=== PATIENT | female | born 1935 | race African-American/Black ===

== ENCOUNTER 2018-09-13 14:00 | Emergency (ER) | payer MEDICARE ==
[~2018-09-13] VITALS: Ht 162.6 cm; Wt 55.8 kg
[~2018-09-13 14:00] MED LIST: AMLO5TAB7 PO; ASPI-630 PO; CITA10TA4 PO; ERGO500027 PO; HYDR-2145 PO; LISI-130 PO; SIMV20TA3 PO
[2018-09-13 14:32] LABS: BASO # 0.1 x10^3/uL (0.0-0.2); BASO % 1 % (0-3); EOS # 0.2 x10^3/uL (0.0-0.7); EOS % 3 % (0-3); HEMATOCRIT 32.3 % (36.0-47.0); HEMOGLOBIN 10.9 g/dL (12.0-15.5); LYMPH # 1.6 x10^3/uL (1.0-4.8); LYMPH % 28 % (24-48); MEAN CORPUSCULAR HEMOGLOBIN 32 pg (25-35); MEAN CORPUSCULAR HGB CONC 34 g/dL (31-37); MEAN CORPUSCULAR VOLUME 94 fL (79-100); MONO # 0.4 x10^3/uL (0.0-1.1); MONO % 7 % (0-9); NEUT # 3.4 x10^3uL (1.8-7.7); NEUT % 61 % (31-73); PLATELET COUNT 220 x10^3/uL (140-400); RED BLOOD COUNT 3.44 x10^6/uL (3.50-5.40); WHITE BLOOD COUNT 5.6 x10^3/uL (4.0-11.0)
[2018-09-13 14:53] LABS: CALCIUM 9.4 mg/dL (8.5-10.1); CREATININE 1.2 mg/dL (0.6-1.0); GFR 51.9; POTASSIUM 4.4 mmol/L (3.5-5.1)
--- NOTE | 2018-09-13 14:57 | EKG ---
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
[2018-09-13 14:58] LABS: ALBUMIN 3.7 g/dL (3.4-5.0); ALBUMIN/GLOBULIN RATIO 0.9 (1.0-1.7); TOTAL BILIRUBIN 0.2 mg/dL (0.2-1.0); TOTAL PROTEIN 7.8 g/dL (6.4-8.2)
[2018-09-13 15:11] LABS: BILIRUBIN,URINE NEGATIVE (NEG); COLOR,URINE YELLOW; NITRITE,URINE NEGATIVE (NEG); PROTEIN,URINE NEGATIVE (NEG-TRACE)
[2018-09-13 15:18] LABS: BARBITURATES NEG (NEG); BENZODIAZEPINES NEG (NEG); CANNABINOIDS NEG (NEG); COCAINE NEG (NEG); METHADONE NEG (NEG); OPIATES NEG (NEG); PHENCYCLIDINE NEG (NEG)
[2018-09-13 15:21] LABS: CLARITY,URINE HAZY
[2018-09-13 15:26] LABS: AMPHETAMINE/METHAMPHETAMINE NEG (NEG)
[2018-09-13 15:34] LABS: BACTERIA,URINE MANY /HPF (0-FEW); RBC,URINE RARE /HPF (0-2); SQUAMOUS EPITHELIAL CELL,UR MANY /LPF
--- NOTE | 2018-09-13 16:24 | PHYS DOC ---
Past Medical History Past Medical History: Cancer, Hypertension, Other Additional Past Medical Histor: COLON CANCER Past Surgical History: Other Additional Past Surgical Histo: UNKNOWN, NOT A GOOD HISTORIAN Alcohol Use: None Drug Use: None Adult General Chief Complaint Chief Complaint: ALTERED MENTAL STATUS HPI HPI Patient is a 83 year old male patient resident of assisted who brought in by EMS because of confusion and history of recent UTI. Patient is oriented 1 and talking about some prothesis device in her vagina that was placed by EMT staff. Patient is not able to give history. Review of Systems Review of Systems Able to obtain because of medical condition Current Medications Current Medications Current Medications Medications (Trade) Dose Ordered Sig/Leonila Start Time Stop Time Status Last Admin Dose Admin Ciprofloxacin (Cipro) 250 mg 1X ONCE 09/13/18 16:30 09/13/18 16:31 DC 09/13/18 17:03 250 MG Allergies Allergies Allergies Coded Allergies Type Severity Reaction Last Updated Verified No Known Drug Allergies 09/26/17 No Physical Exam Physical Exam Constitutional: Well nourished, no acute distress, non-toxic appearance. [] HENT: Normocephalic, atraumatic Eyes: PERRLA, EOMI, conjunctiva normal, no discharge. [] Neck: Normal range of motion, no tenderness, supple, no stridor. [] Cardiovascular:Heart rate regular rhythm, no murmur [] Lungs & Thorax: Bilateral breath sounds clear to auscultation [] Abdomen: Bowel sounds normal, soft, no tenderness, no masses, no pulsatile masses. [] Skin: Warm, dry, no erythema, no rash. [] Back: No tenderness, no CVA tenderness. [] Extremities: No tenderness, no cyanosis, no clubbing, ROM intact, no edema. [] Neurologic: Alert and oriented X 1, normal motor function, normal sensory function, no focal deficits noted. [] Psychologic: Affect anxious, judgement abnormal hallucinating Current Patient Data Vital Signs Vital Signs Date Time Temp Pulse Resp B/P (MAP) Pulse Ox O2 Delivery O2 Flow Rate FiO2 09/13/18 20:59 58 20 100 09/13/18 14:00 98.3 146/70 (95) Room Air 98.3 Lab Values Laboratory Tests Test 09/13/18 14:15 09/13/18 14:55 White Blood Count 5.6 x10^3/uL (4.0-11.0) Red Blood Count 3.44 x10^6/uL (3.50-5.40) L Hemoglobin 10.9 g/dL (12.0-15.5) L Hematocrit 32.3 % (36.0-47.0) L Mean Corpuscular Volume 94 fL (79-100) Mean Corpuscular Hemoglobin 32 pg (25-35) Mean Corpuscular Hemoglobin Concent 34 g/dL (31-37) Red Cell Distribution Width 15.0 % (11.5-14.5) H Platelet Count 220 x10^3/uL (140-400) Neutrophils (%) (Auto) 61 % (31-73) Lymphocytes (%) (Auto) 28 % (24-48) Monocytes (%) (Auto) 7 % (0-9) Eosinophils (%) (Auto) 3 % (0-3) Basophils (%) (Auto) 1 % (0-3) Neutrophils # (Auto) 3.4 x10^3uL (1.8-7.7) Lymphocytes # (Auto) 1.6 x10^3/uL (1.0-4.8) Monocytes # (Auto) 0.4 x10^3/uL (0.0-1.1) Eosinophils # (Auto) 0.2 x10^3/uL (0.0-0.7) Basophils # (Auto) 0.1 x10^3/uL (0.0-0.2) Sodium Level 143 mmol/L (136-145) Potassium Level 4.4 mmol/L (3.5-5.1) Chloride Level 107 mmol/L (98-107) Carbon Dioxide Level 28 mmol/L (21-32) Anion Gap 8 (6-14) Blood Urea Nitrogen 28 mg/dL (7-20) H Creatinine 1.2 mg/dL (0.6-1.0) H Estimated GFR (Cockcroft-Gault) 51.9 BUN/Creatinine Ratio 23 (6-20) H Glucose Level 93 mg/dL (70-99) Lactic Acid Level 1.0 mmol/L (0.4-2.0) Calcium Level 9.4 mg/dL (8.5-10.1) Magnesium Level 2.0 mg/dL (1.8-2.4) Total Bilirubin 0.2 mg/dL (0.2-1.0) Aspartate Amino Transferase (AST) 15 U/L (15-37) Alanine Aminotransferase (ALT) 17 U/L (14-59) Alkaline Phosphatase 55 U/L (46-116) Creatine Kinase 110 U/L (26-192) Troponin I Quantitative < 0.017 ng/mL (0.000-0.055) RZ-Ldi-X-Type Natriuretic Peptide 466 pg/mL (0-449) H Total Protein 7.8 g/dL (6.4-8.2) Albumin 3.7 g/dL (3.4-5.0) Albumin/Globulin Ratio 0.9 (1.0-1.7) L Urine Collection Type Void Urine Color Yellow Urine Clarity Hazy Urine pH 7.0 Urine Specific [place] 1.025 Urine Protein Negative mg/dL (NEG-TRACE) Urine Glucose (UA) Negative mg/dL (NEG) Urine Ketones (Stick) Negative mg/dL (NEG) Urine Blood Negative (NEG) Urine Nitrite Negative (NEG) Urine Bilirubin Negative (NEG) Urine Urobilinogen Dipstick 1.0 mg/dL (0.2 mg/dL) Urine Leukocyte Esterase Moderate (NEG) Urine RBC Rare /HPF (0-2) Urine WBC 5-10 /HPF (0-4) Urine Squamous Epithelial Cells Many /LPF Urine Bacteria Many /HPF (0-FEW) Urine Mucus Marked /LPF Urine Opiates Screen Neg (NEG) Urine Methadone Screen Neg (NEG) Urine Barbiturates Neg (NEG) Urine Phencyclidine Screen Neg (NEG) Urine Amphetamine/Methamphetamine Neg (NEG) Urine Benzodiazepines Screen Neg (NEG) Urine Cocaine Screen Neg (NEG) Urine Cannabinoids Screen Neg (NEG) Urine Ethyl Alcohol Neg (NEG) Laboratory Tests 09/13/18 14:15 Laboratory Tests 09/13/18 14:15 EKG EKG EKG interpreted by me. EKG at 1443 showed sinus bradycardia at rate of 55, abnormal left axis deviation, incomplete left bundle branch block, T-wave abnormality in the high lateral leads, no acute ST and T-wave abnormalities. Radiology/Procedures Radiology/Procedures [] Course & Med Decision Making Course & Med Decision Making Pertinent Labs reviewed. (See chart for details) Evaluation of patient in ER showed 82-year-old female patient with active hallucination brought in for medical evaluation for possible UTI to cause her problem. Patient not have hypotension, tachycardia, fever, toxic symptom. UA showed mild infection. Labs was unremarkable. 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 Dragon Disclaimer Dragon Disclaimer This electronic medical record was generated, in whole or in part, using a voice recognition dictation system. Departure Departure Impression: Primary Impression: Agitation Additional Impressions: Hallucination Behavior concern Medical clearance for psychiatric admission UTI (urinary tract infection) Disposition: 65 XFER TO PSYCH HOSP/UNIT ([facility], Dr. Sandoval accepted admission at 2039) Condition: IMPROVED Referrals: NICOLE JAIMES MD (PCP) Problem Qualifiers MARVIN HAIRSTON MD Sep 13, 2018 16:24
[2018-09-13] MEDS ORDERED: CIPROFLOXACIN HCL 250 MG TABLET. PO ONE (16:30)
[2018-09-13 20:59] VITALS: BP 126/64
== END 2018-09-13 21:35 ==
LOC: ER 14:00
DX: R45.1 Restlessness and agitation (principal); R44.3 Hallucinations, unspecified; F91.8 Other conduct disorders; Z01.818 Encounter for other preprocedural examination; N39.0 Urinary tract infection, site not specified; F41.9 Anxiety disorder, unspecified; I10 Essential (primary) hypertension; Z85.038 Personal history of other malignant neoplasm of large intestine
CPT/HCPCS: 36415; 80053; 80307; 81001; 82550; 83605; 83735; 83880; 84484; 85025; 87040; 87086; 93005; 99285-25

== ENCOUNTER 2020-10-03 12:27 | Inpatient (IN) | payer MEDICARE, OTHER ==
[~2020-10-03] VITALS: Ht 162.6 cm; Wt 53.0 kg
[~2020-10-03 12:27] MED LIST changes: +AMLO-186 PO; -AMLO5TAB7 PO; +SIMV20TA18 PO; -SIMV20TA3 PO
[2020-10-03] MEDS ORDERED: IV NORMAL SALINE 1000ML BAG 1,000 ML IV ONE (12:45)
--- NOTE | 2020-10-03 12:51 | PHYS DOC ---
Past Medical History Past Medical History: Cancer, Hypertension, Other Additional Past Medical Histor: COLON CANCER (MAXIMO MONDRAGON APRN) Past Surgical History: Other Additional Past Surgical Histo: UNKNOWN, NOT A GOOD HISTORIAN (MAXIMO MONDRAGON APRN) Smoking Status: Never Smoker Alcohol Use: None Drug Use: None (MAXIMO MONDRAGON APRN) General Adult EDM: Chief Complaint: ALTERED MENTAL STATUS HPI: HPI: Patient is a 85 year old female with a history of hypertension who presents to the ED today from a [facility] to be evaluated for altered mental status. Patient is not able to give much history. She is alert and oriented x1-2. It is unknown how long she has been altered. (MAXIMO MONDRAGON APRN) Review of Systems: Review of Systems: Constitutional: Denies fever or chills. [] Eyes: Denies change in visual acuity. [] HENT: Denies nasal congestion or sore throat. [] Respiratory: Denies cough or shortness of breath. [] Cardiovascular: Denies chest pain or edema. [] GI: Denies abdominal pain, nausea, vomiting, bloody stools or diarrhea. [] : Denies dysuria. [] Musculoskeletal: Denies back pain or joint pain. [] Integument: Denies rash. [] Neurologic: skilled nursing reports altered mental status. Denies headache, focal weakness or sensory changes. [] Psychiatric: Denies depression or anxiety. [] (MAXIMO MONDRAGON APRN) Heart Score: Risk Factors: Risk Factors: DM, Current or recent (<one month) smoker, HTN, HLP, family h istory of CAD, obesity. Risk Scores: Score 0 - 3: 2.5% MACE over next 6 weeks - Discharge Home Score 4 - 6: 20.3% MACE over next 6 weeks - Admit for Clinical Observation Score 7 - 10: 72.7% MACE over next 6 weeks - Early Invasive Strategies (MAXIMO MONDRAGON APRN) Allergies: Allergies: Allergies Coded Allergies Type Severity Reaction Last Updated Verified No Known Drug Allergies 09/26/17 No (MAXIMO MONDRAGON APRN) Physical Exam: PE: Constitutional: Well developed, well nourished, no acute distress, non-toxic appearance. [] HENT: Normocephalic, atraumatic, bilateral external ears normal, oropharynx moist, no oral exudates, nose normal. [] Eyes: PERRLA, EOMI, conjunctiva normal, no discharge. [] Neck: Normal range of motion, no tenderness, supple, no stridor. [] Cardiovascular:Heart rate regular rhythm, no murmur [] Lungs & Thorax: Bilateral breath sounds clear to auscultation [] Abdomen: Bowel sounds normal, soft, no tenderness, no masses, no pulsatile masses. [] Skin: Warm, dry, no erythema, no rash. [] Back: No tenderness, no CVA tenderness. [] Extremities: No tenderness, no cyanosis, no clubbing, ROM intact, no edema. [] Neurologic: Alert and oriented X 1-2, normal motor function, normal sensory function, no focal deficits noted. Cranial nerves II through XII Psychologic: Affect normal, judgement normal, mood normal. [] (MAXIMO MONDRAGON APRN) EKG: EK interpreted by Dr. Burrows sinus rhythm HR 59 LBB no STEMI (MAXIMO MONDRAGON APRN) Radiology/Procedures: Radiology/Procedures: PATIENT: MICHAEL ACEVEDO ACCOUNT: [id number] : 1935 LOCATION: ER AGE: 85 SEX: F EXAM STATUS: REG ER ORD. PHYSICIAN: MAXIMO MONDRAGON APRN REASON: AMS PROCEDURE: CT HEAD WO CONTRAST CT brain without contrast. HISTORY: Altered mental status CT scan of the brain was done without contrast. Sinuses are clear. A skull fracture is not identified. There is no intracranial hemorrhage or subdural hematoma. There is atrophy. There is decreased density in the periventricular white matter from chronic microvascular changes. There is no mass or shift of the midline. Ventricles are normal in size. An acute CVA is not identified. Pattern is similar to the prior study from September 2017. IMPRESSION: 1. Atrophy and chronic white matter changes. 2. No intracranial hemorrhage or acute CVA noted. PQRS Compliance Statement: One or more of the following individualized dose reduction techniques were utilized for this examination: 1. Automated exposure control 2. Adjustment of the mA and/or kV according to patient size 3. Use of iterative reconstruction technique Electronically signed by: Gama Harvey MD (10/03/2020 1:48 PM) [facility] DICTATED and SIGNED BY: GAMA HARVEY MD DATE: 10/03/20 [id number] []PATIENT: BARBY ACEVEDOCOUNT: [id number]#: [id number] : 1935 LOCATION: ER AGE: 85 SEX: F EXAM STATUS: PRE ER ORD. PHYSICIAN: MAXIMO MONDRAGON APRN REASON: AMS PROCEDURE: PORTABLE CHEST 1V AP chest. HISTORY: Altered mental status AP view was taken of the chest. Lungs are clear. There is thoracolumbar scoliosis. Heart is normal in size. There is no effusion. IMPRESSION: 1. No acute infiltrates. Electronically signed by: Gama Harvey MD (10/03/2020 12:59 PM) [facility] DI[facility] and SIGNED BY: GAMA HARVEY MD DATE: 10/03/20 [id number] (MAXIMO MONDRAGON APRN) Course & Med Decision Making: Course & Med Decision Making Pertinent Labs and Imaging studies reviewed. (See chart for details) This is a 85-year-old female patient presented to the ED today from a [facility] to be evaluated for altered mental status change. It is unknown how long she has been altered. Patient is alert and oriented x2. CT of the head as well as chest x-rays are negative for any acute findings. UA is negative for infection CBC CMP with no acute findings EKG noted for left bundle jaime block, troponin 0.063, patient has no chest pain. Spoke to Dr. Garcia who accepted patient for admission he requested we do not start patient on any anticoagulants we will trend the troponin. Routine consult for cardiology placed. (MAXIMO MONDRAGON APRN) Dragon Disclaimer: Dragon Disclaimer: This electronic medical record was generated, in whole or in part, using a voice recognition dictation system. (MAXIMO MONDRAGON APRN) Departure Departure Impression: Primary Impression: AMS (altered mental status) Qualified Codes: R41.82 - Altered mental status, unspecified Additional Impression: Elevated troponin Disposition: ADMITTED INPT THIS HOSP Condition: STABLE Referrals: NICOLE JAIMES MD (PCP) Attending Signature Attending Signature I have reviewed the PA/FUEL OIL CLERK's note and plan of care. I was available for consultation as needed during the patient's visit in the emergency department. I agree with the clinical impression, plan, and disposition. (STEFANIE BURROWS DO) MAXIMO MONDRAGON APRN Oct 03, 2020 12:51 STEFANIE BURROWS DO Oct 03, 2020 14:45
--- NOTE | 2020-10-03 13:01 | RAD ---
AP chest. HISTORY: Altered mental status AP view was taken of the chest. Lungs are clear. There is thoracolumbar scoliosis. Heart is normal in size. There is no effusion. IMPRESSION: 1. No acute infiltrates. Electronically signed by: Gaam Harvey MD (10/03/2020 12:59 PM) [facility]
[2020-10-03 13:31] LABS: BASO # 0.1 x10^3/uL (0.0-0.2); BASO % 1 % (0-3); EOS % 0 % (0-3); HEMATOCRIT 35.3 % (36.0-47.0); HEMOGLOBIN 11.7 g/dL (12.0-15.5); LYMPH # 0.7 x10^3/uL (1.0-4.8); LYMPH % 6 % (24-48); MEAN CORPUSCULAR HEMOGLOBIN 31 pg (25-35); MEAN CORPUSCULAR HGB CONC 33 g/dL (31-37); MEAN CORPUSCULAR VOLUME 93 fL (79-100); MONO # 0.6 x10^3/uL (0.0-1.1); MONO % 6 % (0-9); NEUT % 87 % (31-73); PLATELET COUNT 291 x10^3/uL (140-400); RED BLOOD COUNT 3.79 x10^6/uL (3.50-5.40); RED CELL DISTRIBUTION WIDTH 14.8 % (11.5-14.5); WHITE BLOOD COUNT 10.4 x10^3/uL (4.0-11.0)
[2020-10-03 13:45] LABS: BARBITURATES NEG (NEG); BENZODIAZEPINES NEG (NEG); CANNABINOIDS NEG (NEG); COCAINE NEG (NEG); METHADONE NEG (NEG); OPIATES NEG (NEG); PHENCYCLIDINE NEG (NEG)
[2020-10-03 13:47] LABS: AMPHETAMINE/METHAMPHETAMINE NEG (NEG)
[2020-10-03 13:48] LABS: PROTHROMBIN TIME PATIENT 14.7 SEC (11.7-14.0)
[2020-10-03 13:50] LABS: CALCIUM 9.4 mg/dL (8.5-10.1); CREATININE 1.2 mg/dL (0.6-1.0); GFR 51.7; POTASSIUM 3.5 mmol/L (3.5-5.1)
--- NOTE | 2020-10-03 13:51 | RAD ---
CT brain without contrast. HISTORY: Altered mental status CT scan of the brain was done without contrast. Sinuses are clear. A skull fracture is not identified . There is no intracranial hemorrhage or subdural hematoma. There is atrophy. There is decreased dens ity in the periventricular white matter from chronic microvascular changes. There is no mass or shift of the midline. Ventricles are normal in size. An acute CVA is not identified. Pattern is similar to the prior study from September 2017. IMPRESSION: 1. Atrophy and chronic white matter changes. 2. No intracranial hemorrhage or acute CVA noted. PQRS Compliance Statement: One or more of the following individualized dose reduction techniques were utilized for this examinat ion: 1. Automated exposure control 2. Adjustment of the mA and/or kV according to patient size 3. Use of iterative reconstruction technique Electronically signed by: Gama Harvey MD (10/03/2020 1:48 PM) [facility]
[2020-10-03 13:53] LABS: BILIRUBIN,URINE SMALL (NEG); CLARITY,URINE CLEAR; COLOR,URINE YELLOW; NITRITE,URINE NEGATIVE (NEG); PROTEIN,URINE NEGATIVE (NEG-TRACE)
[2020-10-03 13:54] LABS: BACTERIA,URINE 0 /HPF (0-FEW); HYALINE CASTS, URINE MODERATE /HPF; RBC,URINE 0 /HPF (0-2); WBC,URINE OCC /HPF (0-4)
[2020-10-03 13:56] LABS: ALBUMIN 3.4 g/dL (3.4-5.0); ALBUMIN/GLOBULIN RATIO 0.9 (1.0-1.7); TOTAL BILIRUBIN 0.3 mg/dL (0.2-1.0); TOTAL PROTEIN 7.3 g/dL (6.4-8.2)
[2020-10-03] MEDS ORDERED: MORPHINE SULFATE 2 MG/ML VIAL. IV PRN ×2 (14:30→14:45)
[2020-10-03] MEDS ORDERED: ELECTROLYTE (NON-ICU) PROTOCOL. MC PRN (14:30)
[2020-10-03] MEDS ORDERED: ACETAMINOPHEN 325 MG TABLET. PO PRN ×3 (14:30→18:15)
[2020-10-03] MEDS ORDERED: ZOLPIDEM 5 MG TABLET. PO PRN (14:30)
[2020-10-03] MEDS ORDERED: HYDROcodone/APAP 5/325MG 1 TAB TABLET PO PRN (14:30)
[2020-10-03] MEDS ORDERED: ONDANSETRON PF 4 MG/2 ML VIAL. IVP PRN (14:30)
[2020-10-03] MEDS ORDERED: ONDANSETRON PF 4 MG/2 ML VIAL. IV PRN (14:45)
[2020-10-03 14:51] LABS: % BANDS 2 % (0-9); % LYMPHS 5 % (24-48); % MONOS 6 % (0-10); % SEGS 87 % (35-66); PLT ESTIMATE ADEQUATE (ADEQUATE)
[2020-10-03 14:53] LABS: TOXIC GRANULATION SLIGHT
--- NOTE | 2020-10-03 16:38 | PDOC1 ---
History and Physical Date of Admission Date of Admission 10/03/2020 Identification/Chief Complaint Chief Complaint Altered mental status Source Source: Chart review, Patient History of Present Illness History of Present Illness Patient is an 85-year-old female with past medical history of hypertension colon cancer who was in her usual state of health until today when she was sent from her [facility] to be evaluated for altered mental status. Patient unfortunately presented some abnormal laboratory data during her evaluation in the emergency department with elevated troponin mildly, no chest pain no palpitations no shortness of breath no hemodynamic stability was noted. We have been asked to admit the patient to trend her troponins Past Medical History Cardiovascular: HTN, Hyperlipidemia CENTRAL NERVOUS SYSTEM: Dementia GI: Diverticulosis Heme/Onc: No pertinent hx Hepatobiliary: No pertinent hx Psych: No pertinent hx Infectious disease: No pertinent hx Renal/: No pertinent hx Endocrine: No pertinent hx Past Surgical History Past Surgical History: Hysterectomy Social History ALCOHOL: none Drugs: None Current Problem List Problem List Problems Medical Problems: (1) AMS (altered mental status) Status: Acute (2) Elevated troponin Status: Acute Current Medications Current Medications Current Medications Medications (Trade) Dose Ordered Sig/Leonila Start Time Stop Time Status Last Admin Dose Admin Acetaminophen (Tylenol) 650 mg PRN Q4HRS PRN 10/03/20 14:45 10/03/20 16:05 DC Acetaminophen/ Hydrocodone Bitart (Lortab 5/325) 1 tab PRN Q4HRS PRN 10/03/20 14:30 Amlodipine Besylate (Norvasc) 5 mg DAILY 10/04/20 09:00 Aspirin (Aspirin Chewable) 81 mg DAILY 10/04/20 09:00 Citalopram Hydrobromide (CeleXA) 10 mg DAILY 10/04/20 09:00 Docusate Sodium (Colace) 100 mg BID 10/03/20 21:00 Ergocalciferol (Vitamin D2) 50,000 unit WEEKLY 10/11/20 09:00 Heparin Sodium (Porcine) (Heparin Sodium) 5,000 unit Q8HRS 10/03/20 22:00 Hydrochlorothiazide (Hydrodiuril) 25 mg DAILY 10/04/20 09:00 Info (Non-Icu Electrolyte Protocol) 1 ea PRN DAILY PRN 10/03/20 14:30 Lisinopril (Prinivil) 40 mg DAILY 10/04/20 09:00 Morphine Sulfate (Morphine Sulfate) 2 mg PRN Q2HR PRN 10/03/20 14:45 10/03/20 16:06 DC Ondansetron HCl (Zofran) 4 mg PRN Q8HRS PRN 10/03/20 14:45 10/04/20 14:44 Senna/Docusate Sodium (Senna Plus) 1 tab BID 10/03/20 21:00 Simvastatin (Zocor) 20 mg QHS 10/03/20 21:00 Sodium Chloride 1,000 ml @ 1,000 mls/hr 1X ONCE 10/03/20 12:45 10/03/20 13:44 DC 10/03/20 13:17 1,000 MLS/HR Zolpidem Tartrate (Ambien) 5 mg PRN QHS PRN 10/03/20 14:30 Allergies Allergies Allergies Coded Allergies Type Severity Reaction Last Updated Verified No Known Drug Allergies 09/26/17 No ROS Review of System CONSTITUTIONAL: No fever or chills EYES: No recent changes SKIN: No rash or itching CARDIOVASCULAR: No chest pain, syncope, palpitations, or edema RESPIRATORY: No SOB or cough GASTROINTESTINAL: No nausea, vomiting or abdominal pain NEUROLOGICAL: No headaches or weakness ENDOCRINE: No cold or heat intolerance GENITOURINARY: No urgency or frequency of urination MUSCULOSKELETAL: No back pain or joint pain LYMPHATICS: No enlarged lymph nodes PSYCHIATRIC: No anxiety or depression Physical Exam Physical Exam Gen.: well-developed well-nourished in no apparent distress Head: Normal shape atraumatic Eyes: Pupils equal reactive to light and accommodation, normal conjunctivae and lids Ears: Normal shape Nose: Normal shape no trauma Mouth: No exudates of the back of throat no thrush no lesions Neck: Supple no JVD no carotid bruit or lymphadenopathy no thyromegaly Chest: Lungs clear to auscultation with good inspiratory effort no crackles rales or rhonchi Cardiovascular: S1-S2 regular rhythm systolic murmur 2 out of 6 no gallops or rubs Abdomen: Bowel sounds present soft nontender no hepatosplenomegaly appreciated sign Extremities: No clubbing no cyanosis no edema peripheral pulses palpated bilaterally Neurological: Alert awake oriented in person time place and situation, cranial nerves II through XII intact, no motor or sensory deficits appreciated Psych: Appropriate mood, cooperative Vitals Vitals Vital Signs Date Time Temp Pulse Resp B/P (MAP) Pulse Ox O2 Delivery O2 Flow Rate FiO2 10/03/20 13:50 97.8 64 16 96 97.8 10/03/20 12:27 129/65 (86) Room Air Labs Labs Laboratory Tests Test 10/03/20 13:07 10/03/20 13:25 10/03/20 15:41 White Blood Count 10.4 x10^3/uL (4.0-11.0) Red Blood Count 3.79 x10^6/uL (3.50-5.40) Hemoglobin 11.7 g/dL (12.0-15.5) Hematocrit 35.3 % (36.0-47.0) Mean Corpuscular Volume 93 fL (79-100) Mean Corpuscular Hemoglobin 31 pg (25-35) Mean Corpuscular Hemoglobin Concent 33 g/dL (31-37) Red Cell Distribution Width 14.8 % (11.5-14.5) Platelet Count 291 x10^3/uL (140-400) Neutrophils (%) (Auto) 87 % (31-73) Lymphocytes (%) (Auto) 6 % (24-48) Monocytes (%) (Auto) 6 % (0-9) Eosinophils (%) (Auto) 0 % (0-3) Basophils (%) (Auto) 1 % (0-3) Neutrophils # (Auto) 9.0 x10^3/uL (1.8-7.7) Lymphocytes # (Auto) 0.7 x10^3/uL (1.0-4.8) Monocytes # (Auto) 0.6 x10^3/uL (0.0-1.1) Eosinophils # (Auto) 0.0 x10^3/uL (0.0-0.7) Basophils # (Auto) 0.1 x10^3/uL (0.0-0.2) Segmented Neutrophils % 87 % (35-66) Band Neutrophils % 2 % (0-9) Lymphocytes % 5 % (24-48) Monocytes % 6 % (0-10) Toxic Granulation Slight Platelet Estimate Adequate (ADEQUATE) Prothrombin Time 14.7 SEC (11.7-14.0) Prothromb Time International Ratio 1.2 (0.8-1.1) Activated Partial Thromboplast Time 19 SEC (24-38) Sodium Level 141 mmol/L (136-145) Potassium Level 3.5 mmol/L (3.5-5.1) Chloride Level 103 mmol/L (98-107) Carbon Dioxide Level 27 mmol/L (21-32) Anion Gap 11 (6-14) Blood Urea Nitrogen 21 mg/dL (7-20) Creatinine 1.2 mg/dL (0.6-1.0) Estimated GFR (Cockcroft-Gault) 51.7 BUN/Creatinine Ratio 18 (6-20) Glucose Level 106 mg/dL (70-99) Lactic Acid Level 2.5 mmol/L (0.4-2.0) Calcium Level 9.4 mg/dL (8.5-10.1) Magnesium Level 2.0 mg/dL (1.8-2.4) Total Bilirubin 0.3 mg/dL (0.2-1.0) Aspartate Amino Transf (AST/SGOT) 25 U/L (15-37) Alanine Aminotransferase (ALT/SGPT) 18 U/L (14-59) Alkaline Phosphatase 48 U/L (46-116) Creatine Kinase 399 U/L (26-192) Creatine Kinase MB (Mass) 4.0 ng/mL (0.0-3.6) Creatine Kinase MB Relative Index 1.0 % (0-4) Troponin I Quantitative 0.063 ng/mL (0.000-0.055) 0.071 ng/mL (0.000-0.055) YX-Rrt-W-Type Natriuretic Peptide 1048 pg/mL (0-449) Total Protein 7.3 g/dL (6.4-8.2) Albumin 3.4 g/dL (3.4-5.0) Albumin/Globulin Ratio 0.9 (1.0-1.7) Procalcitonin < 0.10 ng/mL (0.00-0.10) Thyroid Stimulating Hormone (TSH) 3.203 uIU/mL (0.358-3.74) Ethyl Alcohol Level < 10 mg/dL (0-10) Urine Collection Type U cath Urine Color Yellow Urine Clarity Clear Urine pH 6.0 (<5.0-8.0) Urine Specific [place] 1.020 (1.000-1.030) Urine Protein Negative mg/dL (NEG-TRACE) Urine Glucose (UA) Negative mg/dL (NEG) Urine Ketones (Stick) 40 mg/dL (NEG) Urine Blood Negative (NEG) Urine Nitrite Negative (NEG) Urine Bilirubin Small (NEG) Urine Urobilinogen Dipstick 1.0 mg/dL (0.2 mg/dL) Urine Leukocyte Esterase Negative (NEG) Urine RBC 0 /HPF (0-2) Urine WBC Occ /HPF (0-4) Urine Squamous Epithelial Cells Few /LPF Urine Bacteria 0 /HPF (0-FEW) Urine Hyaline Casts Moderate /HPF Urine Mucus Marked /LPF Urine Opiates Screen Neg (NEG) Urine Methadone Screen Neg (NEG) Urine Barbiturates Neg (NEG) Urine Phencyclidine Screen Neg (NEG) Urine Amphetamine/Methamphetamine Neg (NEG) Urine Benzodiazepines Screen Neg (NEG) Urine Cocaine Screen Neg (NEG) Urine Cannabinoids Screen Neg (NEG) Urine Ethyl Alcohol Neg (NEG) Laboratory Tests Test 10/03/20 13:07 10/03/20 13:25 10/03/20 15:41 White Blood Count 10.4 x10^3/uL (4.0-11.0) Red Blood Count 3.79 x10^6/uL (3.50-5.40) Hemoglobin 11.7 g/dL (12.0-15.5) Hematocrit 35.3 % (36.0-47.0) Mean Corpuscular Volume 93 fL (79-100) Mean Corpuscular Hemoglobin 31 pg (25-35) Mean Corpuscular Hemoglobin Concent 33 g/dL (31-37) Red Cell Distribution Width 14.8 % (11.5-14.5) Platelet Count 291 x10^3/uL (140-400) Neutrophils (%) (Auto) 87 % (31-73) Lymphocytes (%) (Auto) 6 % (24-48) Monocytes (%) (Auto) 6 % (0-9) Eosinophils (%) (Auto) 0 % (0-3) Basophils (%) (Auto) 1 % (0-3) Neutrophils # (Auto) 9.0 x10^3/uL (1.8-7.7) Lymphocytes # (Auto) 0.7 x10^3/uL (1.0-4.8) Monocytes # (Auto) 0.6 x10^3/uL (0.0-1.1) Eosinophils # (Auto) 0.0 x10^3/uL (0.0-0.7) Basophils # (Auto) 0.1 x10^3/uL (0.0-0.2) Segmented Neutrophils % 87 % (35-66) Band Neutrophils % 2 % (0-9) Lymphocytes % 5 % (24-48) Monocytes % 6 % (0-10) Toxic Granulation Slight Platelet Estimate Adequate (ADEQUATE) Prothrombin Time 14.7 SEC (11.7-14.0) Prothromb Time International Ratio 1.2 (0.8-1.1) Activated Partial Thromboplast Time 19 SEC (24-38) Sodium Level 141 mmol/L (136-145) Potassium Level 3.5 mmol/L (3.5-5.1) Chloride Level 103 mmol/L (98-107) Carbon Dioxide Level 27 mmol/L (21-32) Anion Gap 11 (6-14) Blood Urea Nitrogen 21 mg/dL (7-20) Creatinine 1.2 mg/dL (0.6-1.0) Estimated GFR (Cockcroft-Gault) 51.7 BUN/Creatinine Ratio 18 (6-20) Glucose Level 106 mg/dL (70-99) Lactic Acid Level 2.5 mmol/L (0.4-2.0) Calcium Level 9.4 mg/dL (8.5-10.1) Magnesium Level 2.0 mg/dL (1.8-2.4) Total Bilirubin 0.3 mg/dL (0.2-1.0) Aspartate Amino Transf (AST/SGOT) 25 U/L (15-37) Alanine Aminotransferase (ALT/SGPT) 18 U/L (14-59) Alkaline Phosphatase 48 U/L (46-116) Creatine Kinase 399 U/L (26-192) Creatine Kinase MB (Mass) 4.0 ng/mL (0.0-3.6) Creatine Kinase MB Relative Index 1.0 % (0-4) Troponin I Quantitative 0.063 ng/mL (0.000-0.055) 0.071 ng/mL (0.000-0.055) YF-Hmu-W-Type Natriuretic Peptide 1048 pg/mL (0-449) Total Protein 7.3 g/dL (6.4-8.2) Albumin 3.4 g/dL (3.4-5.0) Albumin/Globulin Ratio 0.9 (1.0-1.7) Procalcitonin < 0.10 ng/mL (0.00-0.10) Thyroid Stimulating Hormone (TSH) 3.203 uIU/mL (0.358-3.74) Ethyl Alcohol Level < 10 mg/dL (0-10) Urine Collection Type U cath Urine Color Yellow Urine Clarity Clear Urine pH 6.0 (<5.0-8.0) Urine Specific [place] 1.020 (1.000-1.030) Urine Protein Negative mg/dL (NEG-TRACE) Urine Glucose (UA) Negative mg/dL (NEG) Urine Ketones (Stick) 40 mg/dL (NEG) Urine Blood Negative (NEG) Urine Nitrite Negative (NEG) Urine Bilirubin Small (NEG) Urine Urobilinogen Dipstick 1.0 mg/dL (0.2 mg/dL) Urine Leukocyte Esterase Negative (NEG) Urine RBC 0 /HPF (0-2) Urine WBC Occ /HPF (0-4) Urine Squamous Epithelial Cells Few /LPF Urine Bacteria 0 /HPF (0-FEW) Urine Hyaline Casts Moderate /HPF Urine Mucus Marked /LPF Urine Opiates Screen Neg (NEG) Urine Methadone Screen Neg (NEG) Urine Barbiturates Neg (NEG) Urine Phencyclidine Screen Neg (NEG) Urine Amphetamine/Methamphetamine Neg (NEG) Urine Benzodiazepines Screen Neg (NEG) Urine Cocaine Screen Neg (NEG) Urine Cannabinoids Screen Neg (NEG) Urine Ethyl Alcohol Neg (NEG) VTE Prophylaxis Ordered VTE Prophylaxis Devices: No VTE Pharmacological Prophylaxi: Yes Assessment/Plan Assessment/Plan Metabolic encephalopathy Elevated troponin Chronic kidney disease stage IIIb Essential hypertension History of colon cancer Plan Trend troponin We will review medical records Last echocardiogram done in 2018 shows an ejection fraction of 55% normal LV segmental wall motion moderate valvular aortic stenosis Reassess in the a.m. Hopefully discharge in the a.m. Justifications for Admission Other Justification elevated troponin KEO ARAUZ MD Oct 03, 2020 16:38
[2020-10-03 17:00] VITALS: BP 156/68
--- NOTE | 2020-10-03 17:45 | NUR ---
The patient, MICHAEL ACEVEDO, 85 y/o, F admitted by KEO ARAUZ MD, was given written information regarding hospital policies, unit procedures and contact persons. Valuables were checked and left at bedside with patient. Patients daughter/DPOA arrived to room with patient. Daughter verified belongings, medication and medical history. Advised of fall monitoring, VS and labs to be checked routinely
[2020-10-03] MEDS ORDERED: SERT50TA PO (18:15)
[2020-10-03] MEDS ORDERED: OLAN2.5T3 PO (18:15)
[2020-10-03] MEDS ORDERED: MAG355OR12 PO (18:15)
[2020-10-03] MEDS ORDERED: MAG HYDROX/ALUMINUM HYD/SIMETH 30 ML ORAL.SUSP PO PRN (18:15)
[2020-10-03] MEDS ORDERED: RISP0.5T24 PO (18:15)
[2020-10-03] MEDS ORDERED: MAGN24003 PO (18:15)
[2020-10-03] MEDS ORDERED: traZODone 50 MG TABLET. PO PRN (18:15)
[2020-10-03] MEDS ORDERED: ACET325T9 PO (18:15)
[2020-10-03] MEDS ORDERED: TRAZ-118 PO (18:15)
[2020-10-03] MEDS ORDERED: MAGNESIUM HYDROXIDE 2,400 MG/30 ML ORAL.SUSP. PO PRN (18:30)
[2020-10-03 19:05] VITALS: BP 139/63
[2020-10-03] MEDS: DOCUSATE SODIUM 100 MG CAPSULE. PO SCH (21:20)
[2020-10-03] MEDS: SENNOSIDES/DOCUSATE 8.6/50MG TABLET. PO SCH (21:20)
[2020-10-03] MEDS: SIMVASTATIN 20 MG TABLET PO SCH (21:20)
[2020-10-03] MEDS: OLANZapine 2.5 MG TABLET PO PRN (21:21)
[2020-10-03] MEDS: risperiDONE 0.25 MG TABLET. PO SCH (21:21)
[2020-10-03] MEDS: HEPARIN for SUB-Q USE 5,000 UNIT/ML VIAL. SQ SCH (21:34)
[2020-10-03 23:09] VITALS: BP 92/54
[2020-10-04 03:15] VITALS: BP 108/60
[2020-10-04] MEDS: HEPARIN for SUB-Q USE 5,000 UNIT/ML VIAL. SQ SCH ×3 (06:20→20:27)
[2020-10-04 07:00] VITALS: BP 98/55
[2020-10-04 08:27] LABS: BASO % 0 % (0-3); EOS # 0.1 x10^3/uL (0.0-0.7); EOS % 2 % (0-3); HEMATOCRIT 29.3 % (36.0-47.0); HEMOGLOBIN 9.8 g/dL (12.0-15.5); LYMPH # 0.9 x10^3/uL (1.0-4.8); LYMPH % 16 % (24-48); MEAN CORPUSCULAR HEMOGLOBIN 31 pg (25-35); MEAN CORPUSCULAR HGB CONC 34 g/dL (31-37); MEAN CORPUSCULAR VOLUME 93 fL (79-100); MONO # 0.4 x10^3/uL (0.0-1.1); MONO % 7 % (0-9); NEUT % 75 % (31-73); PLATELET COUNT 249 x10^3/uL (140-400); RED BLOOD COUNT 3.17 x10^6/uL (3.50-5.40); RED CELL DISTRIBUTION WIDTH 14.8 % (11.5-14.5); WHITE BLOOD COUNT 5.4 x10^3/uL (4.0-11.0)
--- NOTE | 2020-10-04 08:36 | PDOC ---
[employer] PROGRESS NOTE Date of Service DOS: DATE: 10/04/20 TIME: 08:31 Chief Complaint Chief Complaint Assessment/Plan Metabolic encephalopathy Elevated troponin Chronic kidney disease stage IIIb Essential hypertension History of colon cancer Plan Trend troponin We will review medical records Last echocardiogram done in 2018 shows an ejection fraction of 55% normal LV segmental wall motion moderate valvular aortic stenosis Reassess in the a.m. Hopefully discharge in the a.m. History of Present Illness History of Present Illness Patient is an 85-year-old female with past medical history of hypertension colon cancer who was in her usual state of health until today when she was sent from her [facility] to be evaluated for altered mental status. Patient unfortunately presented some abnormal laboratory data during her evaluation in the emergency department with elevated troponin mildly, no chest pain no palpitations no shortness of breath no hemodynamic stability was noted. We have been asked to admit the patient to trend her troponins 10/04: Patient afebrile, breathing room air. Improving stable, lactic acid resolved, hemoglobin did drop from 11.7-9.8, likely delusional. Appreciate cardiology recommendations. She had blood cultures showing gram-positive cocci in clusters in 1 of 4 bottles, suggestive of staph. Suspect contamination with staph epi, as chest x-ray on admission was normal, UA was normal, patient is afebrile and nontoxic. She does have moderate aortic stenosis, and echocardiogram is pending at this time. If they show any signs of vegetations we will consult ID. Patient reportedly lives in assisted living facility, but due to her severe dementia I have my concerns about this. Will order PT/OT. Discussed with RN. Vitals/I&O Vitals/I&O: Vital Signs Date Time Temp Pulse Resp B/P (MAP) Pulse Ox O2 Delivery O2 Flow Rate FiO2 10/04/20 07:00 99.4 61 16 98/55 (69) 94 Room Air 99.4 I & O 10/03/20 10/03/20 10/04/20 15:00 23:00 07:00 Intake Total 1000 ml 180 ml 100 ml Output Total 0 ml Balance 1000 ml 180 ml 100 ml Physical Exam General: Alert, No acute distress Heart: Regular rate, Normal S1, Normal S2 Lungs: Clear Abdomen: Normal bowel sounds, Soft Extremities: No clubbing, No cyanosis, No edema Skin: No rashes, No breakdown Labs Labs: Laboratory Tests Test 10/03/20 13:07 10/03/20 13:25 10/03/20 15:41 10/03/20 17:03 White Blood Count 10.4 x10^3/uL (4.0-11.0) Red Blood Count 3.79 x10^6/uL (3.50-5.40) Hemoglobin 11.7 g/dL (12.0-15.5) Hematocrit 35.3 % (36.0-47.0) Mean Corpuscular Volume 93 fL (79-100) Mean Corpuscular Hemoglobin 31 pg (25-35) Mean Corpuscular Hemoglobin Concent 33 g/dL (31-37) Red Cell Distribution Width 14.8 % (11.5-14.5) Platelet Count 291 x10^3/uL (140-400) Neutrophils (%) (Auto) 87 % (31-73) Lymphocytes (%) (Auto) 6 % (24-48) Monocytes (%) (Auto) 6 % (0-9) Eosinophils (%) (Auto) 0 % (0-3) Basophils (%) (Auto) 1 % (0-3) Neutrophils # (Auto) 9.0 x10^3/uL (1.8-7.7) Lymphocytes # (Auto) 0.7 x10^3/uL (1.0-4.8) Monocytes # (Auto) 0.6 x10^3/uL (0.0-1.1) Eosinophils # (Auto) 0.0 x10^3/uL (0.0-0.7) Basophils # (Auto) 0.1 x10^3/uL (0.0-0.2) Segmented Neutrophils % 87 % (35-66) Band Neutrophils % 2 % (0-9) Lymphocytes % 5 % (24-48) Monocytes % 6 % (0-10) Toxic Granulation Slight Platelet Estimate Adequate (ADEQUATE) Prothrombin Time 14.7 SEC (11.7-14.0) Prothromb Time International Ratio 1.2 (0.8-1.1) Activated Partial Thromboplast Time 19 SEC (24-38) Sodium Level 141 mmol/L (136-145) Potassium Level 3.5 mmol/L (3.5-5.1) Chloride Level 103 mmol/L (98-107) Carbon Dioxide Level 27 mmol/L (21-32) Anion Gap 11 (6-14) Blood Urea Nitrogen 21 mg/dL (7-20) Creatinine 1.2 mg/dL (0.6-1.0) Estimated GFR (Cockcroft-Gault) 51.7 BUN/Creatinine Ratio 18 (6-20) Glucose Level 106 mg/dL (70-99) Lactic Acid Level 2.5 mmol/L (0.4-2.0) 2.0 mmol/L (0.4-2.0) Calcium Level 9.4 mg/dL (8.5-10.1) Magnesium Level 2.0 mg/dL (1.8-2.4) Total Bilirubin 0.3 mg/dL (0.2-1.0) Aspartate Amino Transf (AST/SGOT) 25 U/L (15-37) Alanine Aminotransferase (ALT/SGPT) 18 U/L (14-59) Alkaline Phosphatase 48 U/L (46-116) Creatine Kinase 399 U/L (26-192) Creatine Kinase MB (Mass) 4.0 ng/mL (0.0-3.6) Creatine Kinase MB Relative Index 1.0 % (0-4) Troponin I Quantitative 0.063 ng/mL (0.000-0.055) 0.071 ng/mL (0.000-0.055) BO-Tvl-D-Type Natriuretic Peptide 1048 pg/mL (0-449) Total Protein 7.3 g/dL (6.4-8.2) Albumin 3.4 g/dL (3.4-5.0) Albumin/Globulin Ratio 0.9 (1.0-1.7) Procalcitonin < 0.10 ng/mL (0.00-0.10) Thyroid Stimulating Hormone (TSH) 3.203 uIU/mL (0.358-3.74) Ethyl Alcohol Level < 10 mg/dL (0-10) Urine Collection Type U cath Urine Color Yellow Urine Clarity Clear Urine pH 6.0 (<5.0-8.0) Urine Specific [place] 1.020 (1.000-1.030) Urine Protein Negative mg/dL (NEG-TRACE) Urine Glucose (UA) Negative mg/dL (NEG) Urine Ketones (Stick) 40 mg/dL (NEG) Urine Blood Negative (NEG) Urine Nitrite Negative (NEG) Urine Bilirubin Small (NEG) Urine Urobilinogen Dipstick 1.0 mg/dL (0.2 mg/dL) Urine Leukocyte Esterase Negative (NEG) Urine RBC 0 /HPF (0-2) Urine WBC Occ /HPF (0-4) Urine Squamous Epithelial Cells Few /LPF Urine Bacteria 0 /HPF (0-FEW) Urine Hyaline Casts Moderate /HPF Urine Mucus Marked /LPF Urine Opiates Screen Neg (NEG) Urine Methadone Screen Neg (NEG) Urine Barbiturates Neg (NEG) Urine Phencyclidine Screen Neg (NEG) Urine Amphetamine/Methamphetamine Neg (NEG) Urine Benzodiazepines Screen Neg (NEG) Urine Cocaine Screen Neg (NEG) Urine Cannabinoids Screen Neg (NEG) Urine Ethyl Alcohol Neg (NEG) Test 10/03/20 18:40 10/04/20 07:35 Troponin I Quantitative 0.060 ng/mL (0.000-0.055) White Blood Count 5.4 x10^3/uL (4.0-11.0) Red Blood Count 3.17 x10^6/uL (3.50-5.40) Hemoglobin 9.8 g/dL (12.0-15.5) Hematocrit 29.3 % (36.0-47.0) Mean Corpuscular Volume 93 fL (79-100) Mean Corpuscular Hemoglobin 31 pg (25-35) Mean Corpuscular Hemoglobin Concent 34 g/dL (31-37) Red Cell Distribution Width 14.8 % (11.5-14.5) Platelet Count 249 x10^3/uL (140-400) Neutrophils (%) (Auto) 75 % (31-73) Lymphocytes (%) (Auto) 16 % (24-48) Monocytes (%) (Auto) 7 % (0-9) Eosinophils (%) (Auto) 2 % (0-3) Basophils (%) (Auto) 0 % (0-3) Neutrophils # (Auto) 4.0 x10^3/uL (1.8-7.7) Lymphocytes # (Auto) 0.9 x10^3/uL (1.0-4.8) Monocytes # (Auto) 0.4 x10^3/uL (0.0-1.1) Eosinophils # (Auto) 0.1 x10^3/uL (0.0-0.7) Basophils # (Auto) 0.0 x10^3/uL (0.0-0.2) Assessment and Plan Assessmemt and Plan Problems Medical Problems: (1) AMS (altered mental status) Status: Acute (2) Elevated troponin Status: Acute Comment Review of Relevant I have reviewed the following items dalton (where applicable) has been applied. Medications: Current Medications Medications (Trade) Dose Ordered Sig/Leonila Route PRN Reason Start Time Stop Time Status Last Admin Dose Admin Sodium Chloride 1,000 ml @ 1,000 mls/hr 1X ONCE IV 10/03/20 12:45 10/03/20 13:44 DC 10/03/20 13:17 Senna/Docusate Sodium (Senna Plus) 1 tab BID PO 10/03/20 21:00 10/03/20 21:20 Docusate Sodium (Colace) 100 mg BID PO 10/03/20 21:00 10/03/20 21:20 Heparin Sodium (Porcine) (Heparin Sodium) 5,000 unit Q8HRS SQ 10/03/20 22:00 10/04/20 06:20 Simvastatin (Zocor) 20 mg QHS PO 10/03/20 21:00 10/03/20 21:20 Olanzapine (ZyPREXA) 2.5 mg PRN Q2HRS PRN PO ANXIETY / AGITATION 10/03/20 18:15 10/03/20 21:21 Risperidone (RisperDAL) 0.75 mg QHS PO 10/03/20 21:00 10/03/20 21:21 Justifications for Admission Other Justification elevated troponin EVITA FAITH MD Oct 04, 2020 08:36
[2020-10-04 08:48] LABS: ALBUMIN 2.6 g/dL (3.4-5.0); ALBUMIN/GLOBULIN RATIO 0.8 (1.0-1.7); CALCIUM 8.5 mg/dL (8.5-10.1); CREATININE 1.1 mg/dL (0.6-1.0); GFR 57.1; POTASSIUM 3.1 mmol/L (3.5-5.1); TOTAL BILIRUBIN 0.4 mg/dL (0.2-1.0); TOTAL PROTEIN 5.7 g/dL (6.4-8.2)
[2020-10-04] MEDS: SERTRALINE 50 MG TABLET. PO SCH (08:54)
[2020-10-04] MEDS: amLODIPine BESYLATE 5 MG TABLET PO SCH (08:54)
[2020-10-04] MEDS: hydroCHLOROthiazide 25 MG TABLET PO SCH (08:54)
[2020-10-04] MEDS: DOCUSATE SODIUM 100 MG CAPSULE. PO SCH ×2 (08:54→20:26)
[2020-10-04] MEDS: LISINOPRIL 20 MG TABLET PO SCH (08:54)
[2020-10-04] MEDS: ASPIRIN CHEWABLE 81 MG TABLET. PO SCH (08:54)
[2020-10-04] MEDS: SENNOSIDES/DOCUSATE 8.6/50MG TABLET. PO SCH ×2 (08:54→20:26)
[2020-10-04] MEDS: CITALOPRAM 10 MG TABLET. PO SCH (09:00)
--- NOTE | 2020-10-04 10:45 | PDOC2 ---
CARDIOLOGY CONSULT NOTE DATE OF SERVICE: DATE: 10/04/20 TIME: 10:42 CHIEF COMPLAINT: Mental status changes. HPI: 85 y.o presented from custodial with concern for mental status changes. Initial ER evaluation revealed elevated troponin. Cardiology asked to comment on her trop elevation. She denies any present chest pain or dyspnea but history is limited due to her presumed dementia. PMHX: HTN LBBB Aortic stenosis. Hx of syncope with tachybrady syndrome, refused pacer in the past. SOCHX: Lives in [facility]. No alcohol, tob or illicits. FAMHX: NC CURRENT MEDS: Current Medications Medications (Trade) Dose Ordered Sig/Leonila Route PRN Reason Start Time Stop Time Status Last Admin Dose Admin Sodium Chloride 1,000 ml @ 1,000 mls/hr 1X ONCE IV 10/03/20 12:45 10/03/20 13:44 DC 10/03/20 13:17 Senna/Docusate Sodium (Senna Plus) 1 tab BID PO 10/03/20 21:00 10/04/20 08:54 Docusate Sodium (Colace) 100 mg BID PO 10/03/20 21:00 10/04/20 08:54 Heparin Sodium (Porcine) (Heparin Sodium) 5,000 unit Q8HRS SQ 10/03/20 22:00 10/04/20 06:20 Aspirin (Aspirin Chewable) 81 mg DAILY PO 10/04/20 09:00 10/04/20 08:54 Simvastatin (Zocor) 20 mg QHS PO 10/03/20 21:00 10/03/20 21:20 Olanzapine (ZyPREXA) 2.5 mg PRN Q2HRS PRN PO ANXIETY / AGITATION 10/03/20 18:15 10/03/20 21:21 Sertraline HCl (Zoloft) 50 mg DAILY PO 10/04/20 09:00 10/04/20 08:54 Risperidone (RisperDAL) 0.75 mg QHS PO 10/03/20 21:00 10/03/20 21:21 ALLERGIES: Allergies Coded Allergies Type Severity Reaction Last Updated Verified No Known Drug Allergies 09/26/17 No ROS: Unable to be accurately obtained. PHYSICAL EXAM: Vital Signs/I&O: Vital Signs Date Time Temp Pulse Resp B/P (MAP) Pulse Ox O2 Delivery O2 Flow Rate FiO2 10/04/20 08:54 61 98/55 10/04/20 07:00 99.4 16 94 Room Air 99.4 I & O 10/03/20 10/03/20 10/04/20 14:55 22:55 06:55 Intake Total 1000 ml 180 ml 100 ml Output Total 0 ml Balance 1000 ml 180 ml 100 ml Physical Exam: GEN.: No apparent distress. Alert and oriented. HEENT: Head is normocephalic, atraumatic NECK: Supple. LUNGS: Decreased breath sounds. HEART: RRR, S1, S2 present. distant heart sounds 2/6 murmur, diminished S2. Neck veins flat. ABDOMEN: Soft, nontender. Positive bowel sounds. EXTREMITIES: Without any cyanosis. NEUROLOGIC: Normal speech, normal tone PSYCHIATRIC: Normal affect, normal mood. SKIN: No ulcerations DIAGNOSTIC TESTING: EKG with SR and LBBB. chronic changes. Trop noted. Lab Laboratory Tests Test 10/03/20 13:07 10/03/20 13:25 10/03/20 17:03 10/04/20 07:35 White Blood Count 10.4 x10^3/uL (4.0-11.0) 5.4 x10^3/uL (4.0-11.0) Red Blood Count 3.79 x10^6/uL (3.50-5.40) 3.17 x10^6/uL (3.50-5.40) L Hemoglobin 11.7 g/dL (12.0-15.5) L 9.8 g/dL (12.0-15.5) L Hematocrit 35.3 % (36.0-47.0) L 29.3 % (36.0-47.0) L Mean Corpuscular Volume 93 fL (79-100) 93 fL (79-100) Mean Corpuscular Hemoglobin 31 pg (25-35) 31 pg (25-35) Mean Corpuscular Hemoglobin Concent 33 g/dL (31-37) 34 g/dL (31-37) Red Cell Distribution Width 14.8 % (11.5-14.5) H 14.8 % (11.5-14.5) H Platelet Count 291 x10^3/uL (140-400) 249 x10^3/uL (140-400) Neutrophils (%) (Auto) 87 % (31-73) H 75 % (31-73) H Lymphocytes (%) (Auto) 6 % (24-48) L 16 % (24-48) L Monocytes (%) (Auto) 6 % (0-9) 7 % (0-9) Eosinophils (%) (Auto) 0 % (0-3) 2 % (0-3) Basophils (%) (Auto) 1 % (0-3) 0 % (0-3) Neutrophils # (Auto) 9.0 x10^3/uL (1.8-7.7) H 4.0 x10^3/uL (1.8-7.7) Lymphocytes # (Auto) 0.7 x10^3/uL (1.0-4.8) L 0.9 x10^3/uL (1.0-4.8) L Monocytes # (Auto) 0.6 x10^3/uL (0.0-1.1) 0.4 x10^3/uL (0.0-1.1) Eosinophils # (Auto) 0.0 x10^3/uL (0.0-0.7) 0.1 x10^3/uL (0.0-0.7) Basophils # (Auto) 0.1 x10^3/uL (0.0-0.2) 0.0 x10^3/uL (0.0-0.2) Segmented Neutrophils % 87 % (35-66) H Band Neutrophils % 2 % (0-9) Lymphocytes % 5 % (24-48) L Monocytes % 6 % (0-10) Toxic Granulation Slight Platelet Estimate Adequate (ADEQUATE) Prothrombin Time 14.7 SEC (11.7-14.0) H Prothromb Time International Ratio 1.2 (0.8-1.1) H Activated Partial Thromboplast Time 19 SEC (24-38) L Sodium Level 141 mmol/L (136-145) 143 mmol/L (136-145) Potassium Level 3.5 mmol/L (3.5-5.1) 3.1 mmol/L (3.5-5.1) L Chloride Level 103 mmol/L (98-107) 107 mmol/L (98-107) Carbon Dioxide Level 27 mmol/L (21-32) 27 mmol/L (21-32) Anion Gap 11 (6-14) 9 (6-14) Blood Urea Nitrogen 21 mg/dL (7-20) H 16 mg/dL (7-20) Creatinine 1.2 mg/dL (0.6-1.0) H 1.1 mg/dL (0.6-1.0) H Estimated GFR (Cockcroft-Gault) 51.7 57.1 BUN/Creatinine Ratio 18 (6-20) 15 (6-20) Glucose Level 106 mg/dL (70-99) H 78 mg/dL (70-99) Lactic Acid Level 2.5 mmol/L (0.4-2.0) H 2.0 mmol/L (0.4-2.0) Calcium Level 9.4 mg/dL (8.5-10.1) 8.5 mg/dL (8.5-10.1) Total Bilirubin 0.3 mg/dL (0.2-1.0) 0.4 mg/dL (0.2-1.0) Aspartate Amino Transf (AST/SGOT) 25 U/L (15-37) 23 U/L (15-37) Alkaline Phosphatase 48 U/L (46-116) 35 U/L (46-116) L Creatine Kinase 399 U/L (26-192) H Creatine Kinase MB (Mass) 4.0 ng/mL (0.0-3.6) H Creatine Kinase MB Relative Index 1.0 % (0-4) Total Protein 7.3 g/dL (6.4-8.2) 5.7 g/dL (6.4-8.2) L Albumin 3.4 g/dL (3.4-5.0) 2.6 g/dL (3.4-5.0) L Albumin/Globulin Ratio 0.9 (1.0-1.7) L 0.8 (1.0-1.7) L Procalcitonin < 0.10 ng/mL (0.00-0.10) Thyroid Stimulating Hormone (TSH) 3.203 uIU/mL (0.358-3.74) Ethyl Alcohol Level < 10 mg/dL (0-10) Urine Collection Type U cath Urine Color Yellow Urine Clarity Clear Urine pH 6.0 (<5.0-8.0) Urine Specific [place] 1.020 (1.000-1.030) Urine Protein Negative mg/dL (NEG-TRACE) Urine Glucose (UA) Negative mg/dL (NEG) Urine Ketones (Stick) 40 mg/dL (NEG) Urine Blood Negative (NEG) Urine Nitrite Negative (NEG) Urine Bilirubin Small (NEG) Urine Urobilinogen Dipstick 1.0 mg/dL (0.2 mg/dL) Urine Leukocyte Esterase Negative (NEG) Urine RBC 0 /HPF (0-2) Urine WBC Occ /HPF (0-4) Urine Squamous Epithelial Cells Few /LPF Urine Bacteria 0 /HPF (0-FEW) Urine Hyaline Casts Moderate /HPF Urine Mucus Marked /LPF Urine Opiates Screen Neg (NEG) Urine Methadone Screen Neg (NEG) Urine Barbiturates Neg (NEG) Urine Phencyclidine Screen Neg (NEG) Urine Amphetamine/Methamphetamine Neg (NEG) Urine Benzodiazepines Screen Neg (NEG) Urine Cocaine Screen Neg (NEG) Urine Cannabinoids Screen Neg (NEG) Urine Ethyl Alcohol Neg (NEG) Laboratory Tests 10/04/20 07:35 ASSESSMENT: 1. Mental status changes - etiology unclear. Less likely cardiac but could be due to her antipsychotics. 2. Moderate , still likely moderate based on exam 3. Elevated troponin - likely type 2 STEMI. 4. hx of tachy-ericka but no abnormalities on tele. PLAN: 1. Check echo to ensure her aortic valve disease is stable as this would be something that could be intervened upon. 2. Hold BP meds and restart as needed, hypotension could also have contributed to her symptoms as she is hypotensive w/o her BP meds this morning. No signs of sepsis (fevers, tachy etc) 3. previously family wanted conservative mgmt, will continue same. Supportive care. If echo wnl, ok to DC from CV standpoint as she has no real CV symptoms, ekg changes. Thanks. DUSTY PINEDA MD Oct 04, 2020 10:45
[2020-10-04 10:50] VITALS: BP 86/52
--- NOTE | 2020-10-04 11:47 | EKG ---
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
[2020-10-04 12:29] LABS: MAGNESIUM 1.9 mg/dL (1.8-2.4); PHOSPHORUS 3.6 mg/dL (2.6-4.7)
[2020-10-04] MEDS: OLANZapine 2.5 MG TABLET PO PRN ×2 (12:53→20:28)
[2020-10-04 15:00] VITALS: BP 107/60
--- NOTE | 2020-10-04 18:28 | NUR ---
Spoke with daughter Elvira who is DPOA re: patient discharge planning. Patient lives assisted living at [facility] but has falling an unknown amount of times. Patient will probably need SNU at this point. Daughter stated that patient has been to [facility] before and is ok with returning or [facility]. Please call her to discuss
[2020-10-04 19:10] VITALS: BP 100/59
[2020-10-04] MEDS: risperiDONE 0.25 MG TABLET. PO SCH (20:26)
[2020-10-04] MEDS: SIMVASTATIN 20 MG TABLET PO SCH (20:26)
[2020-10-04 23:00] VITALS: BP 101/54
[2020-10-05 03:35] VITALS: BP 94/53
[2020-10-05] MEDS: HEPARIN for SUB-Q USE 5,000 UNIT/ML VIAL. SQ SCH ×3 (05:33→21:15)
[2020-10-05 07:00] VITALS: BP 112/68
[2020-10-05 08:53] LABS: CALCIUM 8.5 mg/dL (8.5-10.1); CREATININE 1.2 mg/dL (0.6-1.0); GFR 51.7; POTASSIUM 3.5 mmol/L (3.5-5.1)
[2020-10-05] MEDS: LISINOPRIL 20 MG TABLET PO SCH (09:00)
[2020-10-05] MEDS: hydroCHLOROthiazide 25 MG TABLET PO SCH (09:00)
[2020-10-05] MEDS: ASPIRIN CHEWABLE 81 MG TABLET. PO SCH (09:09)
[2020-10-05] MEDS: CITALOPRAM 10 MG TABLET. PO SCH (09:10)
[2020-10-05] MEDS: SENNOSIDES/DOCUSATE 8.6/50MG TABLET. PO SCH ×2 (09:10→21:16)
[2020-10-05] MEDS: amLODIPine BESYLATE 5 MG TABLET PO SCH (09:10)
[2020-10-05] MEDS: DOCUSATE SODIUM 100 MG CAPSULE. PO SCH ×2 (09:10→21:16)
[2020-10-05] MEDS: SERTRALINE 50 MG TABLET. PO SCH (09:10)
--- NOTE | 2020-10-05 10:58 | PDOC ---
CINDY LEON STRATEGIC SOURCING SPECIALIST 10/05/20 1058: CARDIO Progress Notes Date and Time Date of Service 10/05/20 Time of Evaluation 1050 Subjective Subjective: No Chest Pain, No shortness of breath Vitals Vitals Vital Signs Date Time Temp Pulse Resp B/P (MAP) Pulse Ox O2 Delivery O2 Flow Rate FiO2 10/05/20 09:10 73 112/68 10/05/20 07:00 97.1 18 94 Room Air 97.1 Weight Weight [ ] Input and Output Intake and Output Intake and Output 10/05/20 07:00 Intake Total 712 ml Output Total 700 ml Balance 12 ml Intake Oral 712 ml Output Urine Total 700 ml Laboratory Labs Laboratory Tests Test 10/05/20 07:35 Sodium Level 146 mmol/L (136-145) Potassium Level 3.5 mmol/L (3.5-5.1) Chloride Level 110 mmol/L (98-107) Carbon Dioxide Level 29 mmol/L (21-32) Anion Gap 7 (6-14) Blood Urea Nitrogen 14 mg/dL (7-20) Creatinine 1.2 mg/dL (0.6-1.0) Estimated GFR (Cockcroft-Gault) 51.7 Glucose Level 77 mg/dL (70-99) Calcium Level 8.5 mg/dL (8.5-10.1) Microbiology Micro Microbiology 10/03/20 Blood Culture - Preliminary, Resulted NO GROWTH AFTER 1 DAY Physical Exam HEENT: Neck Supple W Full Motion Chest: Symmetric LUNGS: Clear to Auscultation Heart: RRR Abdomen: Soft N/T Extremities: No Edema Neurology: alert, follow commands, confused Assessment Assessment 1. Encephalopathy with underlying dementia 2. Moderate 3. Mild troponin elevation; peak 0.071. Most probably type II, demand ischemia. CP free. EKG with LBBB, which is unchanged from previous on 09/13/18 4. Hx of tachy-ericka; maintaining SR 5. Bacteremia; BC with GPC 2/4 bottles Recommendations Continue ASA, statin therapy Echo to assess LV systolic function, AV Consider outpatient ischemic evaluation Supportive care Justicifation of Admission Dx: Justifications for Admission: Justification of Admission Dx: Yes Comments: Metabolic encephalopathy Bacteremia DUSTY PINEDA MD 10/05/20 2302: CARDIO Progress Notes Plan Plan Pt. seen and examined,. Agree with above CUSTOMER SERVICE CLERK note. No clear cardiac source of her mental status changes. Echo unchanged from prior Supportive care. CINDY LEON APRN Oct 05, 2020 10:58 DUSTY PINEDA MD Oct 05, 2020 23:02
[2020-10-05 11:00] VITALS: BP 117/60
--- NOTE | 2020-10-05 11:25 | CONS ---
DATE OF CONSULTATION: 10/05/2020 REFERRING PHYSICIAN: Dr. García. REASON FOR CONSULTATION: Bacteremia. HISTORY OF PRESENT ILLNESS: An 85-year-old female who was brought to the Emergency Room with altered mental status. The patient is a poor historian. History obtained from chart and medical staff. The patient had blood cultures done, 2/4 bottles are positive for gram-positive cocci in clusters. ID consultation has been requested for antibiotic management. Currently, the patient is having some nausea and vomiting. She denies any abdominal pain. Her troponin was elevated. She also has a history of moderate aortic stenosis. White count on admission was 10.4, hemoglobin of 11.7, hematocrit of 35.3, platelets of 291. Creatinine is 1.2, BUN of 14. UA shows occasional wbc. UDS was negative. Ethyl alcohol was less than 10. The patient underwent a chest x-ray, which showed no acute infiltrate. CT head showed atrophy and chronic white matter changes, no intracranial bleed. PAST MEDICAL HISTORY: Hypertension, hyperlipidemia, memory loss, vitamin D deficiency. PAST SURGICAL HISTORY: Hysterectomy. ALLERGIES: No known drug allergies. CURRENT MEDICATIONS: Antibiotics none. Sertraline, ergocalciferol, lisinopril, hydrochlorothiazide, citalopram, aspirin, amlodipine, heparin, risperidone, simvastatin, docusate, magnesium hydroxide, trazodone, olanzapine, hydrocodone, acetaminophen, morphine sulfate. SOCIAL HISTORY: [facility] resident. Does not smoke. No alcohol. . REVIEW OF SYSTEMS: Unable to obtain due to memory loss. Does have nausea, vomiting. Denies fevers, chills, cough, shortness of breath, chest pain or dysuria. PHYSICAL EXAMINATION: VITAL SIGNS: Temperature 97.1, pulse 73, respiratory rate 18, blood pressure 112/68, oxygen saturation 94% on room air. GENERAL: Alert, awake female, in mild distress from nausea and vomiting. Cooperative. HEENT: Normocephalic, atraumatic, anicteric. No thrush. Oral mucosa moist. NECK: Supple. LUNGS: Clear bilaterally. HEART: S1, S2, systolic murmur. No gallops. ABDOMEN: Soft, nontender, nondistended. EXTREMITIES: No edema, no cyanosis. DERMATOLOGIC: Warm, dry. No generalized rash. NEUROLOGIC: Alert, awake, has some tremors, mainly in the upper extremities bilaterally, right greater than left. Answers a few questions. Moves all 4 extremities. PSYCHIATRIC: Calm and cooperative. LABORATORY DATA: WBC 5.4, hemoglobin 9.8, hematocrit 29.3, platelets 249. Sodium 126, potassium 3.5, chloride 110, bicarbonate 29, BUN 14, creatinine 1.2. LFTs noted. Albumin 2.6. UDS noted. UA noted. Micro 2/4 bottles GPC, final ID Staphylococcus hominis. IMPRESSION: 1. Bacteremia 2/4 bottles 10/03/2020 coagulase-negative Staph, Staph hominis, likely contaminant.Final ID pending 2. Altered mental status with a history of underlying dementia, could be from psychotropics. 3. Nausea and vomiting. 4. Memory loss. 5. Moderate aortic stenosis. 6. Increased troponin. 7. Chronic kidney disease. 8. History of colon cancer. 9. Hyponatremia and acute kidney injury, likely from dehydration. RECOMMENDATIONS: 1. Dose daptomycin pending final ID and LUKASZ of GPC in blood cultures. 2. Maintain aspiration precaution. 3. Follow up labs and cultures. 4. Continue supportive care. 5. Discussed with nursing staff. Thank you for allowing me to participate in this patient's care. If you have any questions, do not hesitate to contact me. BRIAN BLANTON MD DR: RENATO/ann JOB#: [id number] / [id number] MTDD
--- NOTE | 2020-10-05 11:35 | PDOC ---
[facility] PROGRESS NOTE Date of Service DOS: DATE: 10/05/20 TIME: 11:29 Chief Complaint Chief Complaint Assessment/Plan Metabolic encephalopathy Elevated troponin Chronic kidney disease stage IIIb Essential hypertension History of colon cancer Plan Trend troponin We will review medical records Last echocardiogram done in 2018 shows an ejection fraction of 55% normal LV segmental wall motion moderate valvular aortic stenosis Reassess in the a.m. Hopefully discharge in the a.m. History of Present Illness History of Present Illness Patient is an 85-year-old female with past medical history of hypertension colon cancer who was in her usual state of health until today when she was sent from her [facility] to be evaluated for altered mental status. Patient unfortunately presented some abnormal laboratory data during her evaluation in the emergency department with elevated troponin mildly, no chest pain no palpitations no shortness of breath no hemodynamic stability was noted. We have been asked to admit the patient to trend her troponins 10/04: Patient afebrile, breathing room air. Improving stable, lactic acid resolved, hemoglobin did drop from 11.7-9.8, likely delusional. Appreciate cardiology recommendations. She had blood cultures showing gram-positive cocci in clusters in 1 of 4 bottles, suggestive of staph. Suspect contamination with staph epi, as chest x-ray on admission was normal, UA was normal, patient is afebrile and nontoxic. She does have moderate aortic stenosis, and echocardiogram is pending at this time. If they show any signs of vegetations we will consult ID. Patient reportedly lives in assisted living facility, but due to her severe dementia I have my concerns about this. Will order PT/OT. Discussed with RN. 10/05: Pt seen and examined this morning. Pt vomited this morning. Óscar RN; Óscar pillowcase sewer. Chart reviewed. Vitals/I&O Vitals/I&O: Vital Signs Date Time Temp Pulse Resp B/P (MAP) Pulse Ox O2 Delivery O2 Flow Rate FiO2 10/05/20 09:10 73 112/68 10/05/20 08:00 Room Air 10/05/20 07:00 97.1 18 94 97.1 I & O 10/04/20 10/04/20 10/05/20 15:00 23:00 07:00 Intake Total 494 ml 118 ml 100 ml Output Total 250 ml 450 ml Balance 244 ml -332 ml 100 ml Physical Exam General: Alert, No acute distress Heart: Regular rate, Normal S1, Normal S2 Lungs: Clear Abdomen: Normal bowel sounds, Soft Extremities: No clubbing, No cyanosis, No edema Skin: No rashes, No breakdown Labs Labs: Laboratory Tests Test 10/05/20 07:35 Sodium Level 146 mmol/L (136-145) Potassium Level 3.5 mmol/L (3.5-5.1) Chloride Level 110 mmol/L (98-107) Carbon Dioxide Level 29 mmol/L (21-32) Anion Gap 7 (6-14) Blood Urea Nitrogen 14 mg/dL (7-20) Creatinine 1.2 mg/dL (0.6-1.0) Estimated GFR (Cockcroft-Gault) 51.7 Glucose Level 77 mg/dL (70-99) Calcium Level 8.5 mg/dL (8.5-10.1) Review of Systems Review of Systems: No fever. No rash. Assessment and Plan Assessmemt and Plan Problems Medical Problems: (1) AMS (altered mental status) Status: Acute (2) Elevated troponin Status: Acute 10/05: Assessment: Altered mental status. Elevated troponins. Metabolic encephalopathy. CKD stage IIIb. Essential HTN. Hx of colon ca. Plan: 1. D/c to SNU on Monday if Covid test negative 2 Consult ID 3 Cardiac monitoring 4 Home meds 5 DVT prophylaxis 6 Trend labs Comment Review of Relevant I have reviewed the following items dal[place] (where applicable) has been applied. Justifications for Admission Other Justification elevated troponin VANDANA EDMONDSON III DO Oct 05, 2020 11:35
[2020-10-05] MEDS ORDERED: DAPTOmycin (GENERIC) IVPB 350 MG in IV NORMAL SALINE 50ML 50 ML IV SCH (12:00)
[2020-10-05 15:00] VITALS: BP 117/60
--- NOTE | 2020-10-05 15:29 | NUR ---
SS following for discharge planning. SS reviewed pt chart and discussed with pt RN. Pt is from [facility], ; fax [phone]. Pt is currently on room air. COVID19 test pending. PT/OT [facility]. Pt's family requesting referral to [facility], ; fax [phone]. SS phoned and faxed referral as requested. SS will continue to follow for discharge planning.
--- NOTE | 2020-10-05 17:44 | CARD ---
MR#: [id number] Date of Study: 10/05/2020 Ordering Physician: DUSTY QUINTERO, Referring Physician: DUSTY QUINTERO, Tech: Tamika Neville APPROVED REPORT EXAM: Two-dimensional and M-mode echocardiogram with Doppler and color Doppler. Other Information Quality : GoodHR: 54bpm INDICATION Aortic Valve Disease LV Function:SystolicDiastolic Elevated Troponin RISK FACTORS Hypertension 2D DIMENSIONS Left Atrium(2D)2.7 (1.6-4.0cm)IVSd1.1 (0.7-1.1cm) Aortic Root(2D)2.8 (2.0-3.7cm)LVDd4.4 (3.9-5.9cm) LVOT Diameter1.9 (1.8-2.4cm)PWd0.9 (0.7-1.1cm) LVDs2.5 (2.5-4.0cm)FS (%) 43.1 % SV65.1 mlLVEF(%)74.5 (>50%) Aortic Valve AoV Peak Roque.237.9cm/sAoV VTI59.7cm AO Peak GR.22.6mmHgLVOT Peak Roque.164.5cm/s AO Mean GR.13mmHgAVA (VMAX)1.90cm2 Mitral Valve MV E Ysumvvpm90.6cm/sMV DECEL [id number] MV A Kmpubgml278.7cm/sE/A Ratio0.7 Tricuspid Valve TR P. [id number]/sRAP [id number] TR Peak Gr.[id number] LEFT VENTRICLE The left ventricle is normal size. There is moderate concentric left ventricular hypertrophy. The lef t ventricular systolic function is normal and the ejection fraction is within normal range. The Eject ion Fraction is 55-60%. There is normal LV segmental wall motion. Transmitral Doppler flow pattern is Grade I-abnormal relaxation pattern. RIGHT VENTRICLE The right ventricle is normal size. There is normal right ventricular wall thickness. The right ventr icular systolic function is normal. ATRIA The left atrium size is normal. The right atrium size is normal. The interatrial septum is intact wit h no evidence for an atrial septal defect or patent foramen ovale as noted on 2-D or Doppler imaging. AORTIC VALVE The aortic valve is thickened with moderate to severely reduced leaflet motion. Doppler and Color Yury w revealed trace aortic regurgitation. There is mild valvular aortic stenosis with a mean gradient of 18 mmHg. Visually the valve appears to be moderately stenotic. DI is 0.5 MITRAL VALVE The mitral valve is normal in structure and function. There is no evidence of mitral valve prolapse. There is no mitral valve stenosis. Doppler and Color-flow revealed trace mitral regurgitation. TRICUSPID VALVE The tricuspid valve is normal in structure and function. Doppler and Color Flow revealed moderate tri cuspid regurgitation with an estimated PAP of 39 mmHg. There is no tricuspid valve stenosis. PULMONIC VALVE Doppler and Color Flow revealed trace pulmonic valvular regurgitation. There is no pulmonic valvular stenosis. GREAT VESSELS The aortic root is normal in size. The IVC is normal in size and collapses >50% with inspiration. PERICARDIAL EFFUSION There is no evidence of significant pericardial effusion. Critical Notification Critical Value: No <Conclusion> The left ventricular systolic function is normal and the ejection fraction is within normal range. Th e Ejection Fraction is 55-60%. There is normal LV segmental wall motion. There is moderate concentric left ventricular hypertrophy. There is mild valvular aortic stenosis with a mean gradient of 18 mmHg. Visually the valve appears to be moderately stenotic. DI is 0.5 Signed by : Dusty Quintero, Electronically Approved : 10/05/2020 17:44:26
--- NOTE | 2020-10-05 18:51 | NUR ---
Discharge Note: JANICE ACEVEDO Discharge instructions and discharge home medications reviewed with Patient and a copy given. All questions have been answered and understanding verbalized. The following instructions and handouts were given: cardia and post cath discharge teaching. Discontinued iv lines and catheter intact. Patient discharged to home with self-care. Addendum: 10/06/20 at 0736 by YAMILKA GLORIA RN RN Wrong patient.
[2020-10-05 19:19] VITALS: BP 122/60
[2020-10-05] MEDS: SIMVASTATIN 20 MG TABLET PO SCH (21:16)
[2020-10-05] MEDS: OLANZapine 2.5 MG TABLET PO PRN (21:16)
[2020-10-05] MEDS: risperiDONE 0.25 MG TABLET. PO SCH (21:16)
[2020-10-05 22:50] VITALS: BP 143/70
[2020-10-06 03:11] VITALS: BP 120/69
[2020-10-06] MEDS: HEPARIN for SUB-Q USE 5,000 UNIT/ML VIAL. SQ SCH ×3 (06:00→19:56)
[2020-10-06 07:00] VITALS: BP 166/79
[2020-10-06 08:06] LABS: BASO % 1 % (0-3); EOS # 0.1 x10^3/uL (0.0-0.7); EOS % 2 % (0-3); HEMATOCRIT 32.2 % (36.0-47.0); HEMOGLOBIN 10.6 g/dL (12.0-15.5); LYMPH # 1.4 x10^3/uL (1.0-4.8); LYMPH % 24 % (24-48); MEAN CORPUSCULAR HEMOGLOBIN 31 pg (25-35); MEAN CORPUSCULAR HGB CONC 33 g/dL (31-37); MEAN CORPUSCULAR VOLUME 92 fL (79-100); MONO # 0.5 x10^3/uL (0.0-1.1); MONO % 8 % (0-9); NEUT # 3.8 x10^3/uL (1.8-7.7); NEUT % 65 % (31-73); PLATELET COUNT 258 x10^3/uL (140-400); RED BLOOD COUNT 3.48 x10^6/uL (3.50-5.40); RED CELL DISTRIBUTION WIDTH 14.9 % (11.5-14.5); WHITE BLOOD COUNT 5.9 x10^3/uL (4.0-11.0)
[2020-10-06 08:27] LABS: ALBUMIN 2.7 g/dL (3.4-5.0); ALBUMIN/GLOBULIN RATIO 0.8 (1.0-1.7); CALCIUM 8.8 mg/dL (8.5-10.1); CREATININE 1.1 mg/dL (0.6-1.0); GFR 57.1; POTASSIUM 3.7 mmol/L (3.5-5.1); TOTAL BILIRUBIN 0.3 mg/dL (0.2-1.0); TOTAL PROTEIN 6.1 g/dL (6.4-8.2)
[2020-10-06] MEDS: ASPIRIN CHEWABLE 81 MG TABLET. PO SCH (08:56)
[2020-10-06] MEDS: hydroCHLOROthiazide 25 MG TABLET PO SCH (08:56)
[2020-10-06] MEDS: SENNOSIDES/DOCUSATE 8.6/50MG TABLET. PO SCH ×2 (08:56→19:55)
[2020-10-06] MEDS: CITALOPRAM 10 MG TABLET. PO SCH (08:56)
[2020-10-06] MEDS: SERTRALINE 50 MG TABLET. PO SCH (08:56)
[2020-10-06] MEDS: amLODIPine BESYLATE 5 MG TABLET PO SCH (08:57)
[2020-10-06] MEDS: DOCUSATE SODIUM 100 MG CAPSULE. PO SCH ×2 (09:00→19:55)
--- NOTE | 2020-10-06 10:05 | PDOC ---
Infectious Disease Note Subjective: Subjective pt without complaints no f/n/v/d/abdo pain d/w ZOILA stephenson for tx to [place] today Vital Signs: Vital Signs Vital Signs Date Time Temp Pulse Resp B/P (MAP) Pulse Ox O2 Delivery O2 Flow Rate FiO2 10/06/20 08:57 70 166/79 10/06/20 07:00 98.0 14 92 Room Air 98.0 Physical Exam: PHYSICAL EXAM GENERAL: Alert, awake female, in nad HEENT: Normocephalic, atraumatic, anicteric. No thrush. Oral mucosa moist. NECK: Supple. LUNGS: Clear bilaterally. HEART: S1, S2, systolic murmur. No gallops. ABDOMEN: Soft, nontender, nondistended. EXTREMITIES: No edema, no cyanosis. DERMATOLOGIC: Warm, dry. No generalized rash. NEUROLOGIC: Alert, awake, has some tremors, mainly in the upper extremities bilaterally, right greater than left. Answers a few questions. Moves all 4 extremities. PSYCHIATRIC: Calm and cooperative. Medications: Inpatient Meds: Current Medications Medications (Trade) Dose Ordered Sig/Leonila Start Time Stop Time Status Last Admin Dose Admin Acetaminophen (Tylenol) 650 mg PRN Q6HRS PRN 10/03/20 18:15 Cancel Acetaminophen/ Hydrocodone Bitart (Lortab 5/325) 1 tab PRN Q4HRS PRN 10/03/20 14:30 Al Hydroxide/Mg Hydroxide (Mylanta Plus Xs) 15 ml PRN AFTMEALHC PRN 10/03/20 18:15 Amlodipine Besylate (Norvasc) 5 mg DAILY 10/04/20 09:00 10/06/20 08:57 5 MG Aspirin (Aspirin Chewable) 81 mg DAILY 10/04/20 09:00 10/06/20 08:56 81 MG Citalopram Hydrobromide (CeleXA) 10 mg DAILY 10/04/20 09:00 10/06/20 08:56 10 MG Daptomycin 350 mg/ Sodium Chloride 50 ml @ 100 mls/hr Q48H 10/05/20 12:00 10/05/20 11:43 100 MLS/HR Docusate Sodium (Colace) 100 mg BID 10/03/20 21:00 10/05/20 21:16 100 MG Ergocalciferol (Vitamin D2) 50,000 unit WEEKLY 10/11/20 09:00 Heparin Sodium (Porcine) (Heparin Sodium) 5,000 unit Q8HRS 10/03/20 22:00 10/05/20 21:15 5,000 UNIT Hydrochlorothiazide (Hydrodiuril) 25 mg DAILY 10/04/20 09:00 10/06/20 08:56 25 MG Info (Non-Icu Electrolyte Protocol) 1 ea PRN DAILY PRN 10/03/20 14:30 Lisinopril (Prinivil) 40 mg DAILY 10/04/20 09:00 Magnesium Hydroxide (Milk Of Magnesia) 2,400 mg PRN QHS PRN 10/03/20 18:30 Morphine Sulfate (Morphine Sulfate) 2 mg PRN Q2HR PRN 10/03/20 14:45 10/03/20 16:06 DC Olanzapine (ZyPREXA) 2.5 mg PRN Q2HRS PRN 10/03/20 18:15 10/05/20 21:16 2.5 MG Ondansetron HCl (Zofran) 4 mg PRN Q8HRS PRN 10/03/20 14:45 10/04/20 14:44 DC Risperidone (RisperDAL) 0.75 mg QHS 10/03/20 21:00 10/05/20 21:16 0.75 MG Senna/Docusate Sodium (Senna Plus) 1 tab BID 10/03/20 21:00 10/06/20 08:56 1 TAB Sertraline HCl (Zoloft) 50 mg DAILY 10/04/20 09:00 10/06/20 08:56 50 MG Simvastatin (Zocor) 20 mg QHS 10/03/20 21:00 10/05/20 21:16 20 MG Sodium Chloride 1,000 ml @ 1,000 mls/hr 1X ONCE 10/03/20 12:45 10/03/20 13:44 DC 10/03/20 13:17 1,000 MLS/HR Trazodone HCl (Desyrel) 50 mg PRN QHS PRN 10/03/20 18:15 Zolpidem Tartrate (Ambien) 5 mg PRN QHS PRN 10/03/20 14:30 Labs: Lab Laboratory Tests Test 10/06/20 06:54 White Blood Count 5.9 x10^3/uL (4.0-11.0) Red Blood Count 3.48 x10^6/uL (3.50-5.40) Hemoglobin 10.6 g/dL (12.0-15.5) Hematocrit 32.2 % (36.0-47.0) Mean Corpuscular Volume 92 fL (79-100) Mean Corpuscular Hemoglobin 31 pg (25-35) Mean Corpuscular Hemoglobin Concent 33 g/dL (31-37) Red Cell Distribution Width 14.9 % (11.5-14.5) Platelet Count 258 x10^3/uL (140-400) Neutrophils (%) (Auto) 65 % (31-73) Lymphocytes (%) (Auto) 24 % (24-48) Monocytes (%) (Auto) 8 % (0-9) Eosinophils (%) (Auto) 2 % (0-3) Basophils (%) (Auto) 1 % (0-3) Neutrophils # (Auto) 3.8 x10^3/uL (1.8-7.7) Lymphocytes # (Auto) 1.4 x10^3/uL (1.0-4.8) Monocytes # (Auto) 0.5 x10^3/uL (0.0-1.1) Eosinophils # (Auto) 0.1 x10^3/uL (0.0-0.7) Basophils # (Auto) 0.0 x10^3/uL (0.0-0.2) Sodium Level 147 mmol/L (136-145) Potassium Level 3.7 mmol/L (3.5-5.1) Chloride Level 110 mmol/L (98-107) Carbon Dioxide Level 28 mmol/L (21-32) Anion Gap 9 (6-14) Blood Urea Nitrogen 17 mg/dL (7-20) Creatinine 1.1 mg/dL (0.6-1.0) Estimated GFR (Cockcroft-Gault) 57.1 BUN/Creatinine Ratio 15 (6-20) Glucose Level 79 mg/dL (70-99) Calcium Level 8.8 mg/dL (8.5-10.1) Total Bilirubin 0.3 mg/dL (0.2-1.0) Aspartate Amino Transf (AST/SGOT) 19 U/L (15-37) Alanine Aminotransferase (ALT/SGPT) 15 U/L (14-59) Alkaline Phosphatase 39 U/L (46-116) Creatine Kinase 189 U/L (26-192) Total Protein 6.1 g/dL (6.4-8.2) Albumin 2.7 g/dL (3.4-5.0) Albumin/Globulin Ratio 0.8 (1.0-1.7) Objective: Assessment: 1. Bacteremia 10/29 bottles 10/03/2020 coagulase-negative Staph, Staph hominis, likely contaminant. 2. Altered mental status with a history of underlying dementia, could be from psychotropics. 3. Nausea and vomiting.resolved 4. Memory loss. 5. Moderate aortic stenosis. 6. Increased troponin. 7. Chronic kidney disease. 8. History of colon cancer. 9. Hyponatremia and acute kidney injury, likely from dehydration. Plan: Plan of Care DC Daptomycin maintain aspiration precautions d/w BRIAN BACH MD Oct 06, 2020 10:05
--- NOTE | 2020-10-06 10:14 | SNU/HH DC ---
DISCHARGE ORDERS DISCHARGE INFORMATION: FINAL DIAGNOSIS Problems Medical Problems: (1) AMS (altered mental status) Status: Acute (2) Elevated troponin Status: Acute CONDITION ON DISCHARGE: Stable CODE STATUS: Code Status: DNR/DNI INTERMEDIATE: SNF STAY <30 DAYS: Yes HOSPICE: HOSPICE: No HOSPICE EVAL & TREAT: No LTAC: ADMIT TO LTAC: No POST DISCHARGE ORDERS: DIET AFTER DISCHARGE: Cardiac TREATMENT/EQUIPMENT ORDERS: Physical Therapy For: Evalulation/Treatment Occupational Therapy For: Evaluation/Treatment DISCHARGE MEDICATIONS: Home Meds Active Scripts Amlodipine Besylate (AMLODIPINE BESYLATE) 5 Mg Tablet, 5 MG PO DAILY for 30 Days, #30 TAB Prov:NICOLE JAIMES MD 09/27/17 Ergocalciferol (Vitamin D2) (VITAMIN D2) 50,000 Unit Capsule, 1 CAP PO WEEKLY, #4 CAP 5 Refills Prov:NICOLE JAIMES MD 09/27/17 Simvastatin (SIMVASTATIN) 20 Mg Tablet, 1 TAB PO QHS, #30 TAB 5 Refills Prov:NICOLE JAIMES MD 09/27/17 Citalopram Hydrobromide (CITALOPRAM HBR) 10 Mg Tablet, 1 TAB PO DAILY, #30 TAB 3 Refills Prov:NICOLE JAIMES MD 09/27/17 Lisinopril (LISINOPRIL) 40 Mg Tablet, 1 TAB PO DAILY, #30 TAB 5 Refills Prov:NICOLE JAIMES MD 09/27/17 Hydrochlorothiazide (HYDROCHLOROTHIAZIDE TABLET ) 25 Mg Tablet, 1 TAB PO DAILY, #30 TAB 5 Refills Prov:NICOLE JAIMES MD 09/27/17 Aspirin (ASPIRIN) 81 Mg Tab.chew, 1 TAB PO DAILY, #30 TAB 3 Refills Prov:NICOLE JAIMES MD 09/27/17 Reported Medications Trazodone Hcl (TRAZODONE HCL) 50 Mg Tablet, 50 MG PO PRN QHS PRN for INSOMNIA, TAB 10/03/20 Olanzapine (ZYPREXA) 2.5 Mg Tablet, 2.5 MG PO PRN Q2HRS PRN for ANXIETY / AGITATION, TAB 10/03/20 Magnesium Hydroxide (MILK OF MAGNESIA) 2,400 Mg/10 Ml Oral.susp, 2400 MG PO PRN QHS PRN for CONSTIPATION, MISC 10/03/20 Mag Hydrox/Al Hydrox/Simeth (MAALOX MAXIMUM STRENGTH SUSP) 355 Ml Oral.susp, 15 ML PO PRN AFTMEALHC PRN for HEARTBURN / GAS, MISC 10/03/20 Acetaminophen (TYLENOL) 325 Mg Tablet, 650 MG PO PRN Q6HRS PRN for PAIN, TAB 10/03/20 Sertraline Hcl (ZOLOFT) 50 Mg Tablet, 50 MG PO DAILY for ANTI-DEPRESSANT, TAB 0 Refills 10/03/20 Risperidone (RISPERDAL) 0.5 Mg Tablet, 0.75 MG PO QHS for MOOD STABILIZER, TAB 10/03/20 VANDANA EDMONDSON III DO Oct 06, 2020 10:14
--- NOTE | 2020-10-06 10:16 | PDOC ---
[employer] PROGRESS NOTE Date of Service DOS: DATE: 10/06/20 TIME: 10:16 Chief Complaint Chief Complaint Assessment/Plan Metabolic encephalopathy Elevated troponin Chronic kidney disease stage IIIb Essential hypertension History of colon cancer Plan Trend troponin We will review medical records Last echocardiogram done in 2017 shows an ejection fraction of 55% normal LV segmental wall motion moderate valvular aortic stenosis Reassess in the a.m. Hopefully discharge in the a.m. History of Present Illness History of Present Illness 10/06/2020 Patient seen and examined Discussed with case management Plan is to discharge to snf at [facility] if her Covid test is negative See dictation Patient is an 85-year-old female with past medical history of hypertension colon cancer who was in her usual state of health until today when she was sent from her half-way to be evaluated for altered mental status. Patient unfortunately presented some abnormal laboratory data during her evaluation in the emergency department with elevated troponin mildly, no chest pain no palpitations no shortness of breath no hemodynamic stability was noted. We have been asked to admit the patient to trend her troponins 10/04: Patient afebrile, breathing room air. Improving stable, lactic acid resolved, hemoglobin did drop from 11.7-9.8, likely delusional. Appreciate cardiology recommendations. She had blood cultures showing gram-positive cocci in clusters in 1 of 4 bottles, suggestive of staph. Suspect contamination with staph epi, as chest x-ray on admission was normal, UA was normal, patient is afebrile and nontoxic. She does have moderate aortic stenosis, and echocardiogram is pending at this time. If they show any signs of vegetations we will consult ID. Patient reportedly lives in assisted living facility, but due to her severe dementia I have my concerns about this. Will order PT/OT. Discussed with RN. 10/05: Pt seen and examined this morning. Pt vomited this morning. Óscar RN; Óscar case hardener. Chart reviewed. Vitals/I&O Vitals/I&O: Vital Signs Date Time Temp Pulse Resp B/P (MAP) Pulse Ox O2 Delivery O2 Flow Rate FiO2 10/06/20 08:57 70 166/79 10/06/20 08:00 Room Air 10/06/20 07:00 98.0 14 92 98.0 I & O 10/05/20 10/05/20 10/06/20 15:00 23:00 07:00 Intake Total 0 ml 300 ml Output Total 50 ml Balance -50 ml 300 ml Physical Exam Physical Exam: GENERAL: Alert, awake female, in nad HEENT: Normocephalic, atraumatic, anicteric. No thrush. Oral mucosa moist. NECK: Supple. LUNGS: Clear bilaterally. HEART: S1, S2, systolic murmur. No gallops. ABDOMEN: Soft, nontender, nondistended. EXTREMITIES: No edema, no cyanosis. DERMATOLOGIC: Warm, dry. No generalized rash. NEUROLOGIC: Alert, awake, has some tremors, mainly in the upper extremities bilaterally, right greater than left. Answers a few questions. Moves all 4 extremities. PSYCHIATRIC: Calm and cooperative. General: Alert, No acute distress Heart: Regular rate, Normal S1, Normal S2 Lungs: Clear Abdomen: Normal bowel sounds, Soft Extremities: No clubbing, No cyanosis, No edema Skin: No rashes, No breakdown Labs Labs: Laboratory Tests Test 10/06/20 06:54 White Blood Count 5.9 x10^3/uL (4.0-11.0) Red Blood Count 3.48 x10^6/uL (3.50-5.40) Hemoglobin 10.6 g/dL (12.0-15.5) Hematocrit 32.2 % (36.0-47.0) Mean Corpuscular Volume 92 fL (79-100) Mean Corpuscular Hemoglobin 31 pg (25-35) Mean Corpuscular Hemoglobin Concent 33 g/dL (31-37) Red Cell Distribution Width 14.9 % (11.5-14.5) Platelet Count 258 x10^3/uL (140-400) Neutrophils (%) (Auto) 65 % (31-73) Lymphocytes (%) (Auto) 24 % (24-48) Monocytes (%) (Auto) 8 % (0-9) Eosinophils (%) (Auto) 2 % (0-3) Basophils (%) (Auto) 1 % (0-3) Neutrophils # (Auto) 3.8 x10^3/uL (1.8-7.7) Lymphocytes # (Auto) 1.4 x10^3/uL (1.0-4.8) Monocytes # (Auto) 0.5 x10^3/uL (0.0-1.1) Eosinophils # (Auto) 0.1 x10^3/uL (0.0-0.7) Basophils # (Auto) 0.0 x10^3/uL (0.0-0.2) Sodium Level 147 mmol/L (136-145) Potassium Level 3.7 mmol/L (3.5-5.1) Chloride Level 110 mmol/L (98-107) Carbon Dioxide Level 28 mmol/L (21-32) Anion Gap 9 (6-14) Blood Urea Nitrogen 17 mg/dL (7-20) Creatinine 1.1 mg/dL (0.6-1.0) Estimated GFR (Cockcroft-Gault) 57.1 BUN/Creatinine Ratio 15 (6-20) Glucose Level 79 mg/dL (70-99) Calcium Level 8.8 mg/dL (8.5-10.1) Total Bilirubin 0.3 mg/dL (0.2-1.0) Aspartate Amino Transf (AST/SGOT) 19 U/L (15-37) Alanine Aminotransferase (ALT/SGPT) 15 U/L (14-59) Alkaline Phosphatase 39 U/L (46-116) Creatine Kinase 189 U/L (26-192) Total Protein 6.1 g/dL (6.4-8.2) Albumin 2.7 g/dL (3.4-5.0) Albumin/Globulin Ratio 0.8 (1.0-1.7) Assessment and Plan Assessmemt and Plan Problems Medical Problems: (1) AMS (altered mental status) Status: Acute (2) Elevated troponin Status: Acute [facility] see dictation Comment Review of Relevant I have reviewed the following items dalton (where applicable) has been applied. Medications: Current Medications Medications (Trade) Dose Ordered Sig/Leonila Route PRN Reason Start Time Stop Time Status Last Admin Dose Admin Daptomycin 350 mg/ Sodium Chloride 50 ml @ 100 mls/hr Q48H IV 10/05/20 12:00 10/05/20 11:43 Justifications for Admission Other Justification elevated troponin VANDANA EDMONDSON III DO Oct 06, 2020 10:16
--- NOTE | 2020-10-06 10:28 | NUR ---
SS following up with discharge planning. SS reviewed pt chart and discussed with pt RN. Pt is currently on room air. COVID19 test pending. PT/OT recommended senior care unit. IV Daptomycin being discontinued today. Pt accepted at [facility], ; fax [phone]. Discharge orders received. SS currently awaiting COVID19 test result. SS will continue to follow for discharge planning.
[2020-10-06 11:00] VITALS: BP 113/61
[2020-10-06] MEDS: LISINOPRIL 20 MG TABLET PO SCH (12:55)
[2020-10-06 14:54] VITALS: BP 85/54
[2020-10-06 19:04] VITALS: BP 119/59
[2020-10-06] MEDS: risperiDONE 0.25 MG TABLET. PO SCH (19:55)
[2020-10-06] MEDS: OLANZapine 2.5 MG TABLET PO PRN (19:55)
[2020-10-06] MEDS: SIMVASTATIN 20 MG TABLET PO SCH (19:55)
[2020-10-07] MEDS: HEPARIN for SUB-Q USE 5,000 UNIT/ML VIAL. SQ SCH (04:56)
[2020-10-07 07:00] VITALS: BP 127/68
--- NOTE | 2020-10-07 07:45 | PDOC ---
Infectious Disease Note Subjective: Subjective pt without complaints no f/n/v/d/abdo pain d/w RN ready for transfer to [place] Vital Signs: Vital Signs Vital Signs Date Time Temp Pulse Resp B/P (MAP) Pulse Ox O2 Delivery O2 Flow Rate FiO2 10/06/20 19:40 Room Air 10/06/20 19:04 98.6 70 16 119/59 (79) 98 98.6 Physical Exam: PHYSICAL EXAM GENERAL: Alert, awake female, in nad HEENT: Normocephalic, atraumatic, anicteric. No thrush. Oral mucosa moist. NECK: Supple. LUNGS: Clear bilaterally. HEART: S1, S2, systolic murmur. No gallops. ABDOMEN: Soft, nontender, nondistended. EXTREMITIES: No edema, no cyanosis. DERMATOLOGIC: Warm, dry. No generalized rash. NEUROLOGIC: Alert, awake, has some tremors, mainly in the upper extremities bilaterally, right greater than left. Answers a few questions. Moves all 4 extremities. PSYCHIATRIC: Calm and cooperative. Medications: Inpatient Meds: Current Medications Medications (Trade) Dose Ordered Sig/Leonila Start Time Stop Time Status Last Admin Dose Admin Acetaminophen (Tylenol) 650 mg PRN Q6HRS PRN 10/03/20 18:15 Cancel Acetaminophen/ Hydrocodone Bitart (Lortab 5/325) 1 tab PRN Q4HRS PRN 10/03/20 14:30 Al Hydroxide/Mg Hydroxide (Mylanta Plus Xs) 15 ml PRN AFTMEALHC PRN 10/03/20 18:15 Amlodipine Besylate (Norvasc) 5 mg DAILY 10/04/20 09:00 10/06/20 08:57 5 MG Aspirin (Aspirin Chewable) 81 mg DAILY 10/04/20 09:00 10/06/20 08:56 81 MG Citalopram Hydrobromide (CeleXA) 10 mg DAILY 10/04/20 09:00 10/06/20 08:56 10 MG Daptomycin 350 mg/ Sodium Chloride 50 ml @ 100 mls/hr Q48H 10/05/20 12:00 10/06/20 10:39 DC 10/05/20 11:43 100 MLS/HR Docusate Sodium (Colace) 100 mg BID 10/03/20 21:00 10/05/20 21:16 100 MG Ergocalciferol (Vitamin D2) 50,000 unit WEEKLY 10/11/20 09:00 Heparin Sodium (Porcine) (Heparin Sodium) 5,000 unit Q8HRS 10/03/20 22:00 10/05/20 21:15 5,000 UNIT Hydrochlorothiazide (Hydrodiuril) 25 mg DAILY 10/04/20 09:00 10/06/20 08:56 25 MG Info (Non-Icu Electrolyte Protocol) 1 ea PRN DAILY PRN 10/03/20 14:30 Lisinopril (Prinivil) 40 mg DAILY 10/04/20 09:00 10/06/20 12:55 40 MG Magnesium Hydroxide (Milk Of Magnesia) 2,400 mg PRN QHS PRN 10/03/20 18:30 Morphine Sulfate (Morphine Sulfate) 2 mg PRN Q2HR PRN 10/03/20 14:45 10/03/20 16:06 DC Olanzapine (ZyPREXA) 2.5 mg PRN Q2HRS PRN 10/03/20 18:15 10/06/20 19:55 2.5 MG Ondansetron HCl (Zofran) 4 mg PRN Q8HRS PRN 10/03/20 14:45 10/04/20 14:44 DC Risperidone (RisperDAL) 0.75 mg QHS 10/03/20 21:00 10/06/20 19:55 0.75 MG Senna/Docusate Sodium (Senna Plus) 1 tab BID 10/03/20 21:00 10/06/20 08:56 1 TAB Sertraline HCl (Zoloft) 50 mg DAILY 10/04/20 09:00 10/06/20 08:56 50 MG Simvastatin (Zocor) 20 mg QHS 10/03/20 21:00 10/06/20 19:55 20 MG Sodium Chloride 1,000 ml @ 1,000 mls/hr 1X ONCE 10/03/20 12:45 10/03/20 13:44 DC 10/03/20 13:17 1,000 MLS/HR Trazodone HCl (Desyrel) 50 mg PRN QHS PRN 10/03/20 18:15 Zolpidem Tartrate (Ambien) 5 mg PRN QHS PRN 10/03/20 14:30 Objective: Assessment: 1. Bacteremia 10/29 bottles 10/03/2020 coagulase-negative Staph, Staph hominis,staph epidermidis likely contaminant. 2. Altered mental status with a history of underlying dementia, could be from psychotropics. 3. Nausea and vomiting.resolved 4. Memory loss. 5. Moderate aortic stenosis. 6. Increased troponin. 7. Chronic kidney disease. 8. History of colon cancer. 9. Hyponatremia and acute kidney injury, likely from dehydration. Plan: Plan of Care Monitor off antibiotics repeat bc neg so far maintain aspiration precautions d/w BRIAN BACH MD Oct 07, 2020 07:45
--- NOTE | 2020-10-07 08:33 | PDOC ---
[employer] PROGRESS NOTE Date of Service DOS: DATE: 10/07/20 TIME: 08:29 Chief Complaint Chief Complaint Metabolic encephalopathy Elevated troponin Chronic kidney disease stage IIIb Essential hypertension History of colon cancer History of Present Illness History of Present Illness 10/07/2020 Patient seen and examined. Patient resting w/ NAD Óscar RN Chart reviewed 10/06/2020 Patient seen and examined Discussed with case management Plan is to [facility] her Cov[facility] test is negative See dictation Patient is an 85-year-old female with past medical history of hypertension colon cancer who was in her usual state of health until today when she was sent from her long-term to be evaluated for altered mental status. Patient unfortunately presented some abnormal laboratory data during her evaluation in the emergency department with elevated troponin mildly, no chest pain no palpitations no shortness of breath no hemodynamic stability was noted. We have been asked to admit the patient to trend her troponins 10/04: Patient afebrile, breathing room air. Improving stable, lactic acid resolved, hemoglobin did drop from 11.7-9.8, likely delusional. Appreciate cardiology recommendations. She had blood cultures showing gram-positive cocci in clusters in 1 of 4 bottles, suggestive of staph. Suspect contamination with staph epi, as chest x-ray on admission was normal, UA was normal, patient is afebrile and nontoxic. She does have moderate aortic stenosis, and echocardiogram is pending at this time. If they show any signs of vegetations we will consult ID. Patient reportedly lives in assisted living facility, but due to her severe dementia I have my concerns about this. Will order PT/OT. Discussed with RN. 10/05: Pt seen and examined this morning. Pt vomited this morning. Óscar RN; Óscar case management rn. Chart reviewed. Vitals/I&O Vitals/I&O: Vital Signs Date Time Temp Pulse Resp B/P (MAP) Pulse Ox O2 Delivery O2 Flow Rate FiO2 10/06/20 19:40 Room Air 10/06/20 19:04 98.6 70 16 119/59 (79) 98 98.6 I & O 10/06/20 10/06/20 10/07/20 15:00 23:00 07:00 Intake Total 170 ml 0 ml 0 ml Balance 170 ml 0 ml 0 ml Physical Exam Physical Exam: GENERAL: Alert, awake female, in nad HEENT: Normocephalic, atraumatic, anicteric. No thrush. Oral mucosa moist. NECK: Supple. LUNGS: Clear bilaterally. HEART: S1, S2, systolic murmur. No gallops. ABDOMEN: Soft, nontender, nondistended. EXTREMITIES: No edema, no cyanosis. DERMATOLOGIC: Warm, dry. No generalized rash. NEUROLOGIC: Alert, awake, has some tremors, mainly in the upper extremities bilaterally, right greater than left. Answers a few questions. Moves all 4 extremities. PSYCHIATRIC: Calm and cooperative. General: Alert, No acute distress Heart: Regular rate, Normal S1, Normal S2 Lungs: Clear Abdomen: Normal bowel sounds, Soft Extremities: No clubbing, No cyanosis, No edema Skin: No rashes, No breakdown Review of Systems Review of Systems: Denies SOB. Denies CP. Assessment and Plan Assessmemt and Plan Problems Medical Problems: (1) AMS (altered mental status) Status: Acute (2) Elevated troponin Status: Acute Metabolic encephalopathy Elevated troponin Chronic kidney disease stage IIIb Essential hypertension History of colon cancer Plan 1. Cardiac monitoring 2. Home meds 3. DVT prophylaxis 4. Trend labs 5. Probable d/c to [facility] Comment Review of Relevant I have reviewed the following items dalton (where applicable) has been applied. Justifications for Admission Other Justification elevated troponin VANDANA EDMONDSON III DO Oct 07, 2020 08:32
[2020-10-07] MEDS: LISINOPRIL 20 MG TABLET PO SCH (09:00)
[2020-10-07] MEDS: DOCUSATE SODIUM 100 MG CAPSULE. PO SCH (09:00)
[2020-10-07] MEDS: CITALOPRAM 10 MG TABLET. PO SCH (09:02)
[2020-10-07] MEDS: SENNOSIDES/DOCUSATE 8.6/50MG TABLET. PO SCH (09:02)
[2020-10-07] MEDS: SERTRALINE 50 MG TABLET. PO SCH (09:02)
[2020-10-07] MEDS: hydroCHLOROthiazide 25 MG TABLET PO SCH (09:02)
[2020-10-07] MEDS: ASPIRIN CHEWABLE 81 MG TABLET. PO SCH (09:02)
[2020-10-07 09:03] VITALS: BP 127/68
[2020-10-07] MEDS: amLODIPine BESYLATE 5 MG TABLET PO SCH (09:03)
--- NOTE | 2020-10-07 12:06 | NUR ---
SS following up with discharge planning. SS reviewed pt chart and discussed with pt RN. Pt is currently on room air. COVID19 negative. Pt accepted at [facility], ; fax [phone]. [facility]. Pt will discharge today and go to [facility] at [facility]. [facility] to provide transportation. Pt and pt's RN notified. SS attempted to contact pt's POA and received notification that the voicemail box is full and cannot receive messages. Pt's RN notified.
--- NOTE | 2020-10-07 15:54 | NUR ---
Discharge Note: JANICE ACEVEDO Discharge instructions and discharge home medications reviewed with nurse Schuler at [facility] and copy given to transport. All questions have been answered and understanding verbalized. DPOA called to give update; left voice message.
[2020-10-11] MEDS ORDERED: ERGOCALCIFEROL (VITAMIN D2) 50,000 UNIT CAPSULE. PO SCH (09:00)
== END 2020-10-07 15:57 | DRG 682 ==
LOC: ER 12:27 → ED HOLD 15:30 → 2 SOUTH 17:54 → OBSVTOIN 18:28
PROVIDERS: ADMIT Internal Medicine; ATTEND Internal Medicine
DX: N17.9 Acute kidney failure, unspecified (principal); G93.41 Metabolic encephalopathy; E87.1 Hypo-osmolality and hyponatremia; R78.81 Bacteremia; E78.5 Hyperlipidemia, unspecified; E86.0 Dehydration; F03.90 Unspecified dementia, unspecified severity, without behavioral disturbance, psychotic disturbance, mood disturbance, and anxiety; I12.9 Hypertensive chronic kidney disease with stage 1 through stage 4 chronic kidney disease, or unspecified chronic kidney disease; I35.0 Nonrheumatic aortic (valve) stenosis; I44.7 Left bundle-branch block, unspecified; M41.9 Scoliosis, unspecified; N18.32 Chronic kidney disease, stage 3b; Z85.038 Personal history of other malignant neoplasm of large intestine; Z90.710 Acquired absence of both cervix and uterus; K57.90 Diverticulosis of intestine, part unspecified, without perforation or abscess without bleeding; B95.8 Unspecified staphylococcus as the cause of diseases classified elsewhere; Z20.822 Contact with and (suspected) exposure to COVID-19
CPT/HCPCS: 36415; 70450; 71045; 80048; 80053; 80307; 81001; 82550; 82553; 83605; 83735; 83880; 84100; 84145; 84443; 84484; 85007; 85025; 85610; 85730; 87040; 87077; 87205; 93005; 93308; 93320; 93325; 96360; G0378; G0379; G0480; J0878; J1644; J7030; P9612; U0003; 97110-GO; 97116-GP; 97530-GP; 97535-GO; 99285-25

== ENCOUNTER 2021-02-10 13:57 | Emergency (ER) | payer MEDICARE, OTHER ==
[~2021-02-10] VITALS: Ht 142.2 cm; Wt 40.0 kg
[~2021-02-10 13:57] MED LIST changes: +ACET325T9 PO; +CEFE100B IV; +ENOX30DI SQ; +MAG355OR12 PO; +MAGN24003 PO; +MULT-245 PO; +OLAN2.5T3 PO; +POTA20PA21 PO; +RISP0.5T24 PO; +SERT50TA PO; +SIME80TA14 PO; +TRAZ-118 PO
--- NOTE | 2021-02-10 14:15 | PHYS DOC ---
Past Medical History Past Medical History: Anxiety, Arthritis, Cancer, CHF, Dementia, High Cho lesterol, Hypertension, [place], Renal Disease, Other Additional Past Medical Histor: COLON CANCER,falls,covid Past Surgical History: Other Additional Past Surgical Histo: UNKNOWN, NOT A GOOD HISTORIAN Smoking Status: Never Smoker Alcohol Use: None Drug Use: None General Adult EDM: Chief Complaint: TRAUMA ALERT HPI: HPI: 85-year-old female presenting the emergency department today with a possible shoulder dislocation/fracture. There is no history or report given on how or whether or when the patient fell. EMS has no information for me other than that she got Valium prior to arrival. She is alert to verbal stimuli denies any pain other than her right shoulder. She is reportedly at baseline in her mental status according the EMS. Onset unknown. Duration constant. No alleviating factors. Review of systems negative for hip pain ankle pain head injury loss of conscious. Negative for chest pain shortness of breath abdominal pain vomiting fevers chills. All other review of systems negative. ED course/MDM: 85-year-old female presenting with a possible shoulder dislocation. On arrival the patient is afebrile with a pulse of 88. Blood pressure within normal months. Breathing comfortably on room air. Chest x-ray unremarkable. Hip x-ray unremarkable for any acute osseous abnormalities. CT head and neck shows no acute cervical spine trauma. No acute hemorrhage on CT head. Shoulder x-ray was unremarkable so I went to reevaluate the patient and she did have pain with anterior swelling with limited range of motion so I ordered a CT of the shoulder which showed mild anterior superior subluxation of the humeral head related to chronic full-thickness rotator cuff tear probably along with a nondisplaced acute coracoid fracture. I spoke with Dr. Lebron and communicated the findings. He recommends sling with outpatient follow-up. The patient was then discharged to follow-up with orthopedic surgery in the next 7 days. Heart Score: C/O Chest Pain: No Risk Factors: Risk Factors: DM, Current or recent (<one month) smoker, HTN, HLP, family history of CAD, obesity. Risk Scores: Score 0 - 3: 2.5% MACE over next 6 weeks - Discharge Home Score 4 - 6: 20.3% MACE over next 6 weeks - Admit for Clinical Observation Score 7 - 10: 72.7% MACE over next 6 weeks - Early Invasive Strategies Allergies: Allergies: Allergies Coded Allergies Type Severity Reaction Last Updated Verified No Known Drug Allergies 11/08/20 No Physical Exam: PE: Constitutional: Well developed, well nourished, no acute distress, non-toxic appearance. [] HENT: Normocephalic, atraumatic, bilateral external ears normal, oropharynx moist, no oral exudates, nose normal. [] Eyes: PERRLA, EOMI, conjunctiva normal, no discharge. [] Neck: Normal range of motion, no tenderness, supple, no stridor. [] Cardiovascular:Heart rate regular rhythm, no murmur [] Lungs & Thorax: Bilateral breath sounds clear to auscultation [] Abdomen: Bowel sounds normal, soft, no tenderness, no masses, no pulsatile masses. [] Skin: Warm, dry, no erythema, no rash. [] Back: No tenderness, no CVA tenderness. [] Extremities: The patient's left shoulder has some swelling anteriorly with bruising on the inside of the arm. Neurovascular intact with palpable pulse and 2-second cap refill. Normal motor and sensory function of the hand. Nontender clavicle. Pain with passive range of motion. The elbow and wrist are nontender and atraumatic. The right upper extremity is nontender atraumatic with normal range of motion of the joints and neurovascular intact. The lower extremities bilaterally are nontender atraumatic with normal range of motion of the joints and neurovascular intact. Neurologic: Confused but alert, normal motor function, normal sensory function, no focal deficits noted. [] Baseline neurologic function. Dementia present. Psychologic: Affect normal, judgement normal, mood normal. [] EKG: EKG: [] Radiology/Procedures: Radiology/Procedures: [] Course & Med Decision Making: Course & Med Decision Making Pertinent Labs and Imaging studies reviewed. (See chart for details) [] Dragon Disclaimer: Dragon Disclaimer: This electronic medical record was generated, in whole or in part, using a voice recognition dictation system. Departure Departure Impression: Primary Impression: Shoulder subluxation, left Additional Impression: Closed coracoid process fracture Disposition: HOME / SELF CARE / HOMELESS Condition: STABLE Referrals: JORDAN BOWERS MD (PCP) Patient Instructions: Shoulder Fracture Additional Instructions: Shoulder subluxation you have been diagnosed with a mild anterior superior subluxation of the humeral head with an associated acute coracoid fracture. Keep this shoulder in the sling and follow-up with orthopedic surgery or the [facility] within 7 days Call the emergency department if you have any questions. DIVYA BEARD MD February 10, 2021 14:15
--- NOTE | 2021-02-10 14:39 | RAD ---
AP chest. HISTORY: Fall AP view was taken of the chest. Lungs are free of infiltrates. Heart is normal in size. There is no p leural effusion. IMPRESSION: 1. No acute chest disease. Electronically signed by: Gama Harvey MD (02/10/2021 2:37 PM) [id number]
--- NOTE | 2021-02-10 14:40 | RAD ---
Left shoulder 2 views. HISTORY: Fall 3 views were taken of the left shoulder. There is not evidence of an acute fracture or dislocation. N o acute osseous abnormality is noted. IMPRESSION: 1. No acute fracture or dislocation noted in the left shoulder. Electronically signed by: Gama Harvey MD (02/10/2021 2:38 PM) [id number]
--- NOTE | 2021-02-10 14:41 | RAD ---
EXAM: Pelvis and bilateral hips, 3 views. HISTORY: Pain. Fall. COMPARISON: None. FINDINGS: A frontal view the pelvis and frog-leg views of both hips are obtained. There is no acute f racture, dislocation or subluxation. There is lumbar scoliosis and degenerative change involving the lower lumbar spine. There is subchondral sclerosis and spurring involving the sacroiliac joints. Ther e are vascular calcifications. IMPRESSION: No acute osseous finding. Electronically signed by: Penny Ortiz MD (02/10/2021 2:39 PM) [id number]
[2021-02-10 15:02] VITALS: BP 151/85
--- NOTE | 2021-02-10 15:02 | RAD ---
EXAM: Head and cervical spine CT without contrast. HISTORY: Fall. TECHNIQUE: Computed tomographic images of the head and cervical spine were obtained without contrast. *One or more of the following individualized dose reduction techniques were utilized for this examina tion: 1. Automated exposure control. 2. Adjustment of the mA and/or kV according to patient size. 3. Use of iterative reconstruction technique. COMPARISON: 11/20/2020. FINDINGS: Head: There is no acute hemorrhage. There is no mass effect or midline shift. There is no hydrocephal us. There is cerebral atrophy with compensatory enlargement of the ventricles. There is extensive dec reased attenuation within the cerebral white matter, likely due to chronic small vessel disease. Ther e is incidental bulky ossification along the anterior falx. The visualized portions of the paranasal sinuses and orbits are unremarkable. The mastoid air cells are clear. There is no suspicious calvaria l lesion. Cervical spine. There is cervical kyphosis and mild multilevel listhesis. There is severe degenerativ e endplate remodeling with disc space narrowing, osteophytosis and Schmorl's node formation throughou t the cervical and upper thoracic spine. There are erosions involving the base of the dens, a finding which can be seen with rheumatoid arthritis. There is multilevel facet arthropathy. No suspicious os seous lesion or acute fracture is seen. The combination of degenerative changes results in severe left greater than right foraminal and mild central canal stenosis at C2-C3, severe right greater than left foraminal and mild central canal sten osis at C3-C4, severe right and mild left foraminal stenosis at C4-C5, severe right and moderate left foraminal stenosis C5-C6, and mild right and severe left foraminal stenosis at C6-C7. There is heavily calcified atherosclerotic plaque involving the carotid bifurcations. The airways mid line and widely patent. There is right apical pleural-parenchymal scarring. There is no neck lymphade nopathy. IMPRESSION: 1. No acute finding or evidence of acute cervical spine trauma. 2. Bilateral cerebral white matter changes likely due to chronic small vessel disease. 3. Cerebral atrophy. 4. Severe multilevel degenerative change involving the cervical spine, resulting in significant steno sis at the aforementioned levels. Electronically signed by: Penny Ortiz MD (02/10/2021 2:59 PM) [id number]
--- NOTE | 2021-02-10 15:59 | RAD ---
EXAMINATION: CT LEFT SHOULDER WITHOUT IV CONTRAST CLINICAL HISTORY: Left shoulder pain and swelling with concern for occult glenohumeral dislocation TECHNIQUE: Noncontrast serial axial images obtained through the left shoulder with sagittal and coron al reconstructions. CT Dose Reduction Employed: One or more of the following individualized dose reduction techniques wer e utilized for this examination: 1. Automated exposure control 2. Adjustment of the mA and/or kV ac cording to patient size 3. Use of iterative reconstruction technique. COMPARISON: Left shoulder radiograph same day FINDINGS: Mild anterior superior subluxation of the humeral head relative to the glenoid with moderate fatty re placement of the supraspinatus muscle, suggesting sequelae of chronic full-thickness rotator cuff tea r. Essentially nondisplaced acute fracture through the anterior coracoid process. Moderate glenohumeral degenerative changes. Advanced hypertrophic acromioclavicular degenerative york ges. Partially visualized moderate to severe multilevel cervicothoracic degenerative changes. Poorly visualized glenohumeral joint effusion suggested. Subcutaneous edema throughout the visualized left upper extremity. Partially visualized superior mediastinal calcification, possibly related to old granulomatous diseas e. Aortic and coronary atherosclerotic calcification, incompletely evaluated. Subsegmental atelectasi s and/or scarring in the partially visualized left lung. Old calcified granulomas in the spleen. IMPRESSION: Mild anterior superior subluxation of the humeral head, likely related to chronic full-thickness rota tor cuff tear as described. Essentially nondisplaced acute coracoid fracture. Moderate glenohumeral and advanced acromioclavicular degenerative changes. Additional nonacute findings as described. Electronically signed by: Casper Beltran DO (02/10/2021 3:56 PM) [facility]ULIAN
[2021-02-10 16:20] LABS: BASO # 0.1 x10^3/uL (0.0-0.2); BASO % 1 % (0-3); EOS # 0.1 x10^3/uL (0.0-0.7); EOS % 1 % (0-3); HEMATOCRIT 35.1 % (36.0-47.0); HEMOGLOBIN 11.8 g/dL (12.0-15.5); LYMPH # 1.3 x10^3/uL (1.0-4.8); LYMPH % 20 % (24-48); MEAN CORPUSCULAR HEMOGLOBIN 31 pg (25-35); MEAN CORPUSCULAR HGB CONC 34 g/dL (31-37); MEAN CORPUSCULAR VOLUME 93 fL (79-100); MONO # 0.5 x10^3/uL (0.0-1.1); MONO % 8 % (0-9); NEUT # 4.7 x10^3/uL (1.8-7.7); NEUT % 70 % (31-73); PLATELET COUNT 295 x10^3/uL (140-400); RED BLOOD COUNT 3.79 x10^6/uL (3.50-5.40); WHITE BLOOD COUNT 6.7 x10^3/uL (4.0-11.0)
[2021-02-10 16:45] LABS: CALCIUM 8.9 mg/dL (8.5-10.1); CREATININE 0.9 mg/dL (0.6-1.0)
== END 2021-02-10 19:32 | disposition home or self-care (01) ==
LOC: ER 13:57
DX: S42.132A Displaced fracture of coracoid process, left shoulder, initial encounter for closed fracture (principal); S43.002A Unspecified subluxation of left shoulder joint, initial encounter; M25.551 Pain in right hip; M25.552 Pain in left hip; R07.89 Other chest pain; R51.9 Headache, unspecified; M54.2 Cervicalgia; I11.0 Hypertensive heart disease with heart failure; I50.9 Heart failure, unspecified; E78.00 Pure hypercholesterolemia, unspecified; F03.90 Unspecified dementia, unspecified severity, without behavioral disturbance, psychotic disturbance, mood disturbance, and anxiety; W18.39XA Other fall on same level, initial encounter; Y93.89 Activity, other specified; Y92.89 Other specified places as the place of occurrence of the external cause; Y99.8 Other external cause status
CPT/HCPCS: 36415; 70450; 71045; 72125; 73030; 73200; 73521; 80048; 85025; 86850; 86900; 86901; 99285; A4565; G0480

== ENCOUNTER 2021-06-05 13:18 | Inpatient (IN) | payer MEDICARE, OTHER ==
[~2021-06-05] VITALS: Ht 162.6 cm; Wt 55.5 kg
[2021-06-05 13:52] LABS: BASO % 0 % (0-3); EOS % 0 % (0-3); HEMATOCRIT 39.3 % (36.0-47.0); HEMOGLOBIN 13.2 g/dL (12.0-15.5); LYMPH # 0.7 x10^3/uL (1.0-4.8); LYMPH % 8 % (24-48); MEAN CORPUSCULAR HEMOGLOBIN 30 pg (25-35); MEAN CORPUSCULAR HGB CONC 34 g/dL (31-37); MEAN CORPUSCULAR VOLUME 89 fL (79-100); MONO # 0.6 x10^3/uL (0.0-1.1); MONO % 6 % (0-9); NEUT # 8.1 x10^3/uL (1.8-7.7); NEUT % 86 % (31-73); PLATELET COUNT 402 x10^3/uL (140-400); RED BLOOD COUNT 4.41 x10^6/uL (3.50-5.40); RED CELL DISTRIBUTION WIDTH 14.6 % (11.5-14.5); WHITE BLOOD COUNT 9.5 x10^3/uL (4.0-11.0)
[2021-06-05] MEDS ORDERED: MORPHINE SULFATE 2 MG/ML INJ. IVP ONE ×2 (14:00→16:45)
[2021-06-05 14:01] LABS: CALCIUM 9.8 mg/dL (8.5-10.1); CREATININE 1.1 mg/dL (0.6-1.0); GFR 57.1; POTASSIUM 3.5 mmol/L (3.5-5.1)
--- NOTE | 2021-06-05 14:08 | PHYS DOC ---
Past Medical History Past Medical History: Anxiety, Arthritis, Cancer, CHF, Dementia, High Cho lesterol, Hypertension, [place], Renal Disease, Other Additional Past Medical Histor: COLON CANCER,falls,covid Past Surgical History: Other Additional Past Surgical Histo: UNKNOWN, NOT A GOOD HISTORIAN Smoking Status: Never Smoker Alcohol Use: None Drug Use: None General Adult EDM: Chief Complaint: HIP PAIN HPI: HPI: Patient is a 85 year old female with history of dementia who [facility] who presents with a reported right femoral neck fracture. Reportedly had pain after a transfer a few days ago. Today, she had worsening pain with repositioning and the nurse noted that it seemed to be coming from the right hip. They had an x-ray that showed a fracture. She was referred to the ED for further care. Last p.o. intake noon. No known falls. She is DNR/PIN PULLER CODE STATUS. Her daughter is her DPOA, and we are awaiting a phone call from her to discuss codes her care. Review of Systems: Review of Systems: Unable to complete ROS due to dementia Heart Score: C/O Chest Pain: N/A Risk Factors: Risk Factors: DM, Current or recent (<one month) smoker, HTN, HLP, family history of CAD, obesity. Risk Scores: Score 0 - 3: 2.5% MACE over next 6 weeks - Discharge Home Score 4 - 6: 20.3% MACE over next 6 weeks - Admit for Clinical Observation Score 7 - 10: 72.7% MACE over next 6 weeks - Early Invasive Strategies Current Medications: Current Medications Medications (Trade) Dose Ordered Sig/Leonila Start Time Stop Time Status Last Admin Dose Admin Morphine Sulfate (Morphine Sulfate) 2 mg 1X ONCE 06/05/21 14:00 06/05/21 14:01 06/05/21 13:47 2 MG Allergies: Allergies: Allergies Coded Allergies Type Severity Reaction Last Updated Verified No Known Drug Allergies 11/08/20 No Physical Exam: PE: Constitutional: Screaming, appears acutely uncomfortable.. [] HENT: Normocephalic, atraumatic, [] Eyes: PERRLA, EOMI,[] Neck: Normal range of motion, no tenderness, supple, no stridor. [] Cardiovascular:Heart rate regular rhythm, no murmur [] Lungs & Thorax: Bilateral breath sounds clear to auscultation [] Abdomen: Bowel sounds normal, soft, no tenderness, no masses, no pulsatile masses. [] Skin: Warm, dry, no erythema, no rash. [] Extremities: Right leg appears shortened. She is holding in flexion at the hip and knee. Tenderness over the greater trochanter is evident. She has pain with any extension at the hip. 2+ DP pulse on the right. Good cap refill distally. Neurologic: Disoriented. (reportedly at baseline) moving all extremities. [] Psychologic: Affect normal, judgement normal, mood normal. [] Current Patient Data: Vital Signs: Vital Signs Date Time Temp Pulse Resp B/P (MAP) Pulse Ox O2 Delivery O2 Flow Rate FiO2 06/05/21 13:47 20 100 Room Air 06/05/21 13:25 98.7 104 189/106 (133 98.7 EKG: EKG: Sinus rhythm. Right axis deviation. ST segments laterally. [] Radiology/Procedures: Radiology/Procedures: [] Impression: [address] [id number] IMAGING REPORT Signed PATIENT: MICHAEL ACEVEDO ACCOUNT: [id number] : 1935 LOCATION: ER AGE: 85 SEX: F EXAM STATUS: REG ER ORD. PHYSICIAN: SCOTT ALEXANDRA MD REASON: R hip pain, known fracture PROCEDURE: HIP RIGHT 2V WITH PELVIS XR BILATERAL HIP (WITH OR WITHOUT PELVIS) 2 VIEWS_RIGHT dated 06/05/2021 2:10 PM. History: Reason: R hip pain, known fracture / Spl. Instructions: / History: Comparison: Study of 02/10/2021. Findings: There is a subcapital fracture of the femoral neck. The shaft shows some superior displacement. No other fracture or dislocation is seen. AP view of the pelvis demonstrates no acute abnormality. Impression: 1. Proximal right femur fracture. Electronically signed by: Anna Louis Jr., MD (06/05/2021 2:20 PM) [id number] DICTATED and SIGNED BY: ANNA LOUIS Jr, MD DATE: 06/05/21 [id number] [id number] IMAGING REPORT Signed PATIENT: MICHAEL ACEVEDO ACCOUNT: [id number] : 1935 LOCATION: ER AGE: 85 SEX: F EXAM STATUS: REG ER ORD. PHYSICIAN: SCOTT ALEXANDRA MD REASON: hip fx admit PROCEDURE: CHEST AP ONLY XR CHEST 1V CLINICAL INDICATIONS: Right hip fracture. Patient is 85 years old. Preoperative study.: COMPARISON: February 10, 2021. Findings: No acute lung infiltrate or pleural effusion or pulmonary edema or lung mass or pneumothorax is seen. The heart size, pulmonary vasculature, mediastinum and both mikki are unremarkable. IMPRESSION: No acute lung infiltrate. There is a new finding of superior subluxation of the humeral head with respect to the glenoid fossa. This could be due to a rotator cuff tear. In addition, there is a bone fragment seen lateral and inferior to the left humeral head. This appears well-corticated and therefore does not appear to represent an acute fracture. Clinical correlation with the left shoulder is recommended. Electronically signed by: Shanel Wallace MD (06/05/2021 2:27 PM) [id number] DICTATED and SIGNED BY: SHANEL WALLACE MD DATE: 06/05/21 [id number] Course & Med Decision Making: Course & Med Decision Making Pertinent Labs and Imaging studies reviewed. (See chart for details) Patient 85-year-old female who has severe dementia, and from a facility with reported positive x-ray for right femoral neck fracture. Hemodynamically stable and vitals stable on arrival. She is acutely uncomfortable. Analgesics provided. Will repeat x-ray. Her paperwork indicates that she is DNR/comfort measures only for CODE STATUS. Will discuss with family goals of care. - Patient's daughter/ DPOA indicates that she would want to pursue surgical fixation. We will consult orthopedist and hospitalist for admission. Covid rapid and PCR swab sent. [id number] Leah Disclaimer: Leah Disclaimer: This electronic medical record was generated, in whole or in part, using a voice recognition dictation system. Departure Departure Impression: Primary Impression: Displaced fracture of right femoral neck Disposition: ADMITTED INPATIENT Admitting Physician: [facility] ([place]) Condition: STABLE Referrals: KAYLA ROCA MD (PCP) SCOTT ALEXANDRA MD Jun 05, 2021 14:08
--- NOTE | 2021-06-05 14:22 | RAD ---
XR BILATERAL HIP (WITH OR WITHOUT PELVIS) 2 VIEWS_RIGHT dated 06/05/2021 2:10 PM. History: Reason: R hip pain, known fracture / Spl. Instructions: / History: Comparison: Study of 02/10/2021. Findings: There is a subcapital fracture of the femoral neck. The shaft shows some superior displacement. No ot her fracture or dislocation is seen. AP view of the pelvis demonstrates no acute abnormality. Impression: 1. Proximal right femur fracture. Electronically signed by: Moises Louis Jr., MD (06/05/2021 2:20 PM) [id number]
--- NOTE | 2021-06-05 14:29 | RAD ---
XR CHEST 1V CLINICAL INDICATIONS: Right hip fracture. Patient is 85 years old. Preoperative study.: COMPARISON: February 10, 2021. Findings: No acute lung infiltrate or pleural effusion or pulmonary edema or lung mass or pneumothora x is seen. The heart size, pulmonary vasculature, mediastinum and both mikki are unremarkable. IMPRESSION: No acute lung infiltrate. There is a new finding of superior subluxation of the humeral head with respect to the glenoid fossa. This could be due to a rotator cuff tear. In addition, there is a bone fragment seen lateral and inf erior to the left humeral head. This appears well-corticated and therefore does not appear to represe nt an acute fracture. Clinical correlation with the left shoulder is recommended. Electronically signed by: Homer Wallace MD (06/05/2021 2:27 PM) [id number]
[2021-06-05 15:09] LABS: % BANDS 1 % (0-9); % BASOS 3 % (0-3); % LYMPHS 11 % (24-48); % MONOS 2 % (0-10); % SEGS 83 % (35-66); PLT ESTIMATE ADEQUATE (ADEQUATE)
--- NOTE | 2021-06-05 15:48 | EKG ---
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
[2021-06-05] MEDS ORDERED: MORPHINE SULFATE 2 MG/ML INJ. IVP PRN (16:45)
[2021-06-05] MEDS ORDERED: LABETALOL 20 MG/4 ML DISP.SYRIN. IVP PRN (18:15)
[2021-06-05 20:00] VITALS: BP 158/106
--- NOTE | 2021-06-05 21:04 | HP ---
ADMIT DATE: 06/05/2021 CHIEF COMPLAINT: Fall with hip pain. HISTORY OF PRESENT ILLNESS: The patient is a pleasant 85-year-old female who [facility] the [facility]. She also has dementia and multiple comorbidities. She presented with a fall and hip pain. We did some imaging. She does have a hip fracture. I discussed the case with ER physician. Remained the patient with consultation to orthopedics. PAST MEDICAL HISTORY: Poor historian, dementia, anxiety, arthritis, colon cancer, CHF, hypertension, hyperlipidemia, myocardial infarction, chronic renal insufficiency. ALLERGIES: None. FAMILY HISTORY: Hypertension. SOCIAL HISTORY: She does not drink, smoke or take drugs. She lives at the [facility]. MEDICATIONS: Reviewed, please refer to the MRAD. REVIEW OF SYSTEMS: Unable to obtain. She is too confused. PHYSICAL EXAMINATION: VITALS: Within normal limits and are stable. GENERAL: She is presently confused and frail. HEENT: Normal cephalic atraumatic, external auditory canals are patent EYES: Extraocular muscles are intact, pupils are equally round and reactive to light and accommodation MUSKULOSKELETAL: Well developed, well nourished, good range of motion ENDOCRINE: No thyromegaly was palpated LYMPHATICS: No cervical chain or axillary nodes were noted HEMATOPOIETIC: No bruising NECK: Supple, no JVD, no thyromegaly was noted. LUNGS: Clear to auscultation in all lung nicolas without rhonchi or wheezing. HEART: RRR, S1, S2 present. Peripheral pulses intact, no obvious murmurs were noted. ABDOMEN: Soft, nontender. Positive bowel sounds no organomegaly, normal bowel sounds. EXTREMITIES: Her left hip is painful to touch. NEUROLOGIC: She is presently confused and frail. PSYCHIATRIC: She is presently confused and frail. SKIN: No ulcerations or rashes, good skin turgor, no jaundice. VASCULAR: Good capillary refill, neurovascular bundle appears to be intact. LABORATORY DATA: White count 9, hemoglobin 13, platelets 402. Electrolytes are normal. COVID testing is negative. Pelvis x-ray shows proximal right femur fracture. IMAGING STUDY: The chest x-ray shows no acute infiltrates, but there is a new finding of a superior subluxation of the humeral head, possible rotator cuff tear. ASSESSMENT AND PLAN: Fall with femur fracture. Abnormal imaging of the left humeral head. The patient has been admitted. We will consult orthopedics, p.r.n. pain meds, IV hydration. Home medications. Deep venous thrombosis prophylaxis. Do not resuscitate per family's request. Using p.r.n. morphine. Heredia to bedside drainage. If she goes to surgery, I suspect she will need a few days of wound care and we will trend her labs and she will probably go to halfway. Long-term prognosis is guarded. I did discuss the case with one of her daughters. ZHENG DR: Anila TID: [id number]
[2021-06-05 23:44] VITALS: BP 129/51
[2021-06-06] VITALS (12 sets, daily range): BP systolic 96–155; BP diastolic 61–74
[2021-06-06] MEDS ORDERED: fentaNYL PF VIAL 100 MCG/2 ML VIAL IVP PRN ×2 (08:00)
[2021-06-06] MEDS ORDERED: HYDROmorphone 2 MG/ML VIAL IVP PRN (08:00)
[2021-06-06] MEDS ORDERED: IV RINGERS,LACTATED 1000ML 1,000 ML IV SCH (08:00)
[2021-06-06] MEDS ORDERED: PROCHLORPERAZINE 10 MG/2 ML VIAL. IVP PRN (08:00)
[2021-06-06] MEDS ORDERED: PROPOFOL 10 MG/ML (20ML) VIAL. IV ONE ×2 (08:44→09:00)
[2021-06-06] MEDS ORDERED: ONDANSETRON PF 4 MG/2 ML VIAL. ONE ×2 (08:44→09:00)
[2021-06-06] MEDS ORDERED: DEXAMETHASONE SOD PHOS 4 MG/ML VIAL ONE ×2 (08:44→09:00)
[2021-06-06] MEDS ORDERED: LIDOCAINE 2% PF 5 ML VIAL. ONE ×2 (08:44→09:00)
[2021-06-06] MEDS ORDERED: ePHEDrine PF IN SALINE 50 MG/10 ML SYRINGE. IV ONE ×2 (08:45→09:00)
[2021-06-06] MEDS ORDERED: PHENYLEPHRINE in 0.9% NACL PF 1 MG/10 ML SYRINGE. IV ONE ×2 (08:45→09:00)
[2021-06-06] MEDS ORDERED: fentaNYL PF VIAL 100 MCG/2 ML VIAL ONE ×2 (08:53→09:00)
[2021-06-06] MEDS ORDERED: ROCURONIUM 50 MG/5 ML VIAL. ONE ×2 (08:53→09:00)
[2021-06-06] MEDS ORDERED: NEOSTIGMINE 10 MG/10 ML VIAL. ONE ×2 (09:00→11:10)
[2021-06-06] MEDS ORDERED: GLYCOPYRROLATE 1 MG/5 ML VIAL. ONE ×2 (09:00→11:09)
[2021-06-06] MEDS: AA 4.25 %/CALCIUM/LYTES/D5W 1,000 ML IV SCH (09:00)
[2021-06-06] MEDS ORDERED: ceFAZolin SODIUM IV Push 1 GM VIAL. IVP PRN (09:30)
--- NOTE | 2021-06-06 09:46 | CONS ---
DATE OF CONSULTATION: 06/06/2021 REASON FOR CONSULTATION: Right hip pain. BRIEF HISTORY OF PRESENT ILLNESS: The patient is an 85-year-old female who is in a care facility, unknown fall and she cannot tell us anything that has happened at this point. Mental status is altered significantly. However, she was noted to have a significant amount of pain, was brought to the hospital where x-rays were obtained and she was admitted for a right hip subcapital fracture. No other injuries according to the documentation from the Emergency Department. Past medical and surgical history, medications, allergies, review of systems all reviewed. No significant findings other than the diagnosis as far as orthopedics is concerned. IMPRESSION: Displaced subcapital fracture, right hip. PLAN: At this time when she is medically cleared, she will undergo right hip hemiarthroplasty. Family is aware of the risks and complications as well as benefits and expectations of surgery. We will proceed. ERIN MORALES: Renny TID: [id number]
[2021-06-06] MEDS ORDERED: BUPIVACAINE MPF 0.25% 30 ML VIAL. ONE (11:17)
--- NOTE | 2021-06-06 11:29 | PDOC4 ---
OPERATIVE NOTE Date: Date: Jun 06, 2021 Pre-Op Diagnosis: Displaced subcapital fracture right hip Post-Op Diagnosis: Same Procedure Performed: Bipolar hip arthroplasty right hip Surgeon: Shane Anesthesia Type: General Blood Loss: 100 cc Specimans Obtained: None Findings: See dictation Complications: None JOSE FERGUSON Jr. DO Jun 06, 2021 11:29
[2021-06-06] MEDS ORDERED: MORPHINE SULFATE 2 MG/ML INJ. ONE (11:49)
[2021-06-06] MEDS: MORPHINE SULFATE 2 MG/ML INJ. IVP PRN ×2 (11:51→12:00)
--- NOTE | 2021-06-06 12:53 | OP ---
DATE OF SURGERY: 06/06/2021 PREOPERATIVE DIAGNOSIS: Displaced subcapital fracture, right hip. POSTOPERATIVE DIAGNOSIS: Displaced subcapital fracture, right hip. PROCEDURE: Right hip hemiarthroplasty. SURGEON: Dontae Lynn Jr, DO VP MEDICAL: Also present. ANESTHESIA: General. COMPLICATIONS: None. ESTIMATED BLOOD LOSS: 100 mL. DESCRIPTION OF PROCEDURE: The patient was taken to the operative suite, given a general anesthetic, placed in the lateral decubitus position with the affected hip upright. The bony prominences were well padded. The hip mechanism was placed for patient placement and stability. Right hip was then prepped and draped in a sterile fashion. Standard anterolateral approach was undertaken to the hip with the incision through skin and subcutaneous tissues directly centered over the area of the greater trochanter. This was carefully taken through to the iliotibial band, which was split in line with the skin incision. This was retracted anteriorly and posteriorly. The portion of the gluteus medius and minimus tendons were removed from their original insertion site; however, the upper one-third was left intact. The capsule was identified and opened up in an H fashion. Hematoma was evacuated. One fingerbreadth above the lesser trochanter, the cut was made for the femoral neck due to the neck fracture. The remainder of this bone was removed. The head was then removed and noted to be a size 42. Therefore, after the acetabulum was swept, there were no fractures, no significant abnormalities. This was then thoroughly irrigated and suctioned dry. The broaching began at size 0 and continued up to size 1 after the IM guide was placed. No further placement of the femoral component could go higher even into a size 2; therefore, the size 1 was appropriate size. This was trialled with the +4 length added on the femoral head. This was noted to be stable with a 42 mm outer acetabular shell. This was then subsequently dislocated. All trials were removed. This was thoroughly irrigated. The actual component was placed in the femoral canal. The head and then the outer acetabular component were then all fixed and the bipolar replacement was then again placed within the acetabulum noted to be stable with pistoning as well as extremes of range of motion. The capsule was then reapproximated using #1 Ethibond. The #1 Ethibond was also used to close the gluteus medius musculature. The iliotibial band was then closed with a Stratafix in an interrupted fashion #1 and then #2, a 2-0 Stratafix was then used on subcutaneous tissue, vidal reapproximated the incision. Sterile dressing was applied. The patient was then taken from the operative bed to the postoperative bed, taken to the PACU in stable condition. ISRAEL/MARIPOSA DR: Renny TID: [id number]
--- NOTE | 2021-06-06 14:22 | PDOC ---
[employer] PROGRESS NOTE Date of Service DOS: DATE: 06/06/21 TIME: 14:20 Chief Complaint Chief Complaint Fall with hip fracture Postop day 1 ORIF Dementia, anxiety, arthritis, colon cancer, CHF, hypertension, hyperlipidemia, myocardial infarction, chronic renal insufficiency. History of Present Illness History of Present Illness 06/06/2021 Patient seen and examined She is just returning from the OR had a ORIF Pleasantly confused Has mitts on for her safety Right hip with clean dry intact dressing and ice pack Discussed with RN Vitals/I&O Vitals/I&O: Vital Signs Date Time Temp Pulse Resp B/P (MAP) Pulse Ox O2 Delivery O2 Flow Rate FiO2 06/06/21 12:05 98.8 75 16 131/71 98 Room Air 98.8 06/06/21 11:51 6.0 I & O 06/05/21 06/05/21 06/06/21 15:00 23:00 07:00 Intake Total 0 ml Output Total 100 ml Balance -100 ml Physical Exam General: Other (Pleasantly confused) Heart: Regular rate Lungs: Clear Abdomen: Normal bowel sounds Extremities: Other (Right hip with clean dry intact dressing and an ice pack) Skin: No rashes Labs Labs: Laboratory Tests Test 06/05/21 15:58 SARS-CoV-2 RNA (PRICILA) Negative (Negative) SARS-CoV-2 Antigen (Rapid) Negative (NEGATIVE) Assessment and Plan Assessmemt and Plan Problems Medical Problems: (1) Displaced fracture of right femoral neck Status: Acute Fall with hip fracture Postop day 1 ORIF Dementia, anxiety, arthritis, colon cancer, CHF, hypertension, hyperlipidemia, myocardial infarction, chronic renal insufficiency. Plan Wound care As needed pain meds Home meds DVT prophylaxis Full code PT OT Trend labs Suspect she will need to go to care home Comment Review of Relevant I have reviewed the following items dalton (where applicable) has been applied. Medications: Current Medications Medications (Trade) Dose Ordered Sig/Leonila Route PRN Reason Start Time Stop Time Status Last Admin Dose Admin Morphine Sulfate (Morphine Sulfate) 2 mg 1X ONCE IVP 06/05/21 16:45 06/05/21 16:46 DC 06/05/21 16:45 Morphine Sulfate (Morphine Sulfate) 1 mg PRN Q10MIN PRN IVP SEVERE PAIN 7-10 06/06/21 08:00 06/07/21 07:59 06/06/21 12:00 Ringer's Solution 1,000 ml @ 30 mls/hr Q24H IV 06/06/21 08:00 06/06/21 19:59 06/06/21 09:20 Cefazolin Sodium (Ancef) 1 gm 1X PREOP PRN IVP PRIOR TO PROCEDURE 06/06/21 09:30 06/06/21 21:00 06/06/21 10:05 Justifications for Admission Other Justification elevated troponin VANDAAN EDMONDSON III DO Jun 06, 2021 14:22
[2021-06-07 03:00] VITALS: BP 119/44
[2021-06-07] MEDS: AA 4.25 %/CALCIUM/LYTES/D5W 1,000 ML IV SCH (05:00)
[2021-06-07 07:00] VITALS: BP 131/54
--- NOTE | 2021-06-07 10:44 | NUR ---
SW following. Discussed with RN, pt came from [facility], room air, NPO. SW received a call from [facility], advising pt was on hospice services but had to revoke to have surgery. Family requesting to continue to [facility] upon discharge, but do not want pt to return to [facility]. Vladimir assisting with finding another facility. ESTER advised if facility isn't found by the time pt is ready for discharge, pt will need to return to [facility] and transfer from there. Vladimir verbalized understanding and explained family is aware of this too. SW will continue to follow.
[2021-06-07 11:15] VITALS: BP 94/70
--- NOTE | 2021-06-07 13:26 | PDOC ---
[employer] PROGRESS NOTE Date of Service DOS: DATE: 06/07/21 TIME: 13:23 Chief Complaint Chief Complaint Fall with hip fracture Postop day 1 ORIF Dementia, anxiety, arthritis, colon cancer, CHF, hypertension, hyperlipidemia, myocardial infarction, chronic renal insufficiency. History of Present Illness History of Present Illness 06/06/2021 Patient seen and examined She is just returning from the OR had a ORIF Pleasantly confused Has mitts on for her safety Right hip with clean dry intact dressing and ice pack Discussed with RN 06/07/2021: Patient seen lying in bed. Pleasantly demented. S/P right hip hemiarthroplasty. She has orders in for PT/OT. Will need acute rehab upon discharge; possibly discharge back to [facility]. Vitals/I&O Vitals/I&O: Vital Signs Date Time Temp Pulse Resp B/P (MAP) Pulse Ox O2 Delivery O2 Flow Rate FiO2 06/07/21 11:15 98.7 91 16 94/70 (78) 99 Room Air 98.7 06/07/21 07:00 I & O 06/06/21 06/06/21 06/07/21 15:00 23:00 07:00 Intake Total 430 ml Output Total 50 ml 100 ml 100 ml Balance 380 ml -100 ml -100 ml Physical Exam General: Other (Pleasantly confused) Heart: Regular rate Lungs: Clear Abdomen: Normal bowel sounds Extremities: Other (Right hip with clean dry intact dressing and an ice pack) Skin: No rashes Assessment and Plan Assessmemt and Plan Problems Medical Problems: (1) Displaced fracture of right femoral neck Status: Acute Comment Review of Relevant I have reviewed the following items dalton (where applicable) has been applied. Justifications for Admission Other Justification elevated troponin EVITA FAITH MD Jun 07, 2021 13:26
[2021-06-07 15:10] VITALS: BP 137/67
[2021-06-07 19:00] VITALS: BP 114/59
[2021-06-07 23:00] VITALS: BP 115/59
[2021-06-08] MEDS: AA 4.25 %/CALCIUM/LYTES/D5W 1,000 ML IV SCH ×2 (01:00→19:54)
[2021-06-08 03:00] VITALS: BP 132/61
[2021-06-08 07:00] VITALS: BP 118/63
--- NOTE | 2021-06-08 07:04 | PDOC ---
[employer] PROGRESS NOTE Date of Service DOS: DATE: 06/08/21 TIME: 07:02 Chief Complaint Chief Complaint Fall with right hip fracture - s/p hemiarthroplasty 06/06/21 Dementia Anxiety Arthritis H/o colon cancer diastolic CHF Moderate Aortic Stenosis Chronic kidney disease. History of colon cancer. Pulmonary HTN - likely related to Hypertension Hyperlipidemia FEN - cardiac diet PPX - Eliquis post op 30 days and stop CODE - DNR/DNI Dispo - Family wishes return to hospice care but would like to look into an alternative facility. History of Present Illness History of Present Illness Ms Sigala is a 85 year old female with history of dementia, anxiety, h/o colon ca in remission, aortic stenosis, diastolic chf, CKD, pulmonary HTN, HTN, HLD who is coming from [facility] who presents with a reported right femoral neck fracture. Reportedly had pain after a transfer a few days ago. Today, she had worsening pain with repositioning and the nurse noted that it seemed to be coming from the right hip. They had an x-ray that showed a fracture. She was referred to the ED for further care. Of note she is active in hospice care. 06/06:Patient seen and examined. She is just returning from the OR had a ORIF hemiarthroplasty. Pleasantly confused. Has mitts on for her safety. Right hip with clean dry intact dressing and ice pack. Discussed with RN 06/07: Patient seen lying in bed. Pleasantly demented. S/P right hip hemiarthroplasty. She has orders in for PT/OT. Will need acute rehab upon discharge; possibly discharge back to [facility]. Afebrile overnight no cough. No concerns from nursing staff. Patient is pleasantly confused talking to the television as much as she communicates to me, oriented to person only. Labs pending. Family wishes return to hospice care but would like to look into an alternative facility. Vitals/I&O Vitals/I&O: Vital Signs Date Time Temp Pulse Resp B/P (MAP) Pulse Ox O2 Delivery O2 Flow Rate FiO2 06/08/21 03:00 99.4 93 18 132/61 (84) 97 Room Air 99.4 06/07/21 08:15 6.0 I & O 06/07/21 06/07/21 06/08/21 15:00 23:00 07:00 Intake Total 0 ml Output Total 200 ml 125 ml Balance -200 ml -125 ml Physical Exam General: Other (Pleasantly confused) Heart: Regular rate Lungs: Clear Abdomen: Normal bowel sounds Extremities: Other (Right hip with clean dry intact dressing and an ice pack) Skin: No rashes Assessment and Plan Assessmemt and Plan Problems Medical Problems: (1) Displaced fracture of right femoral neck Status: Acute Comment Review of Relevant I have reviewed the following items dalton (where applicable) has been applied. Justifications for Admission Other Justification elevated troponin NILSON JACINTO MD Jun 08, 2021 07:04
[2021-06-08] MEDS ORDERED: ONDANSETRON PF 4 MG/2 ML VIAL. IVP PRN (07:15)
[2021-06-08] MEDS ORDERED: SIMETHICONE 80 MG TAB.CHEW PO PRN (07:15)
[2021-06-08] MEDS ORDERED: traZODone 50 MG TABLET. PO PRN (07:15)
[2021-06-08] MEDS ORDERED: ACETAMINOPHEN 325 MG TABLET. PO PRN (07:15)
[2021-06-08] MEDS ORDERED: POLYETHYLENE GLYCOL 3350 17 GM PACKET. PO PRN (07:15)
[2021-06-08 08:26] LABS: HEMATOCRIT 30.8 % (36.0-47.0); HEMOGLOBIN 10.4 g/dL (12.0-15.5); RED BLOOD COUNT 3.46 x10^6/uL (3.50-5.40); RED CELL DISTRIBUTION WIDTH 14.5 % (11.5-14.5); WHITE BLOOD COUNT 13.7 x10^3/uL (4.0-11.0)
[2021-06-08 08:55] LABS: CALCIUM 9.3 mg/dL (8.5-10.1); CREATININE 1.2 mg/dL (0.6-1.0); GFR 51.7; POTASSIUM 3.7 mmol/L (3.5-5.1)
[2021-06-08] MEDS ORDERED: ERGOCALCIFEROL (VITAMIN D2) 50,000 UNIT CAPSULE. PO SCH (09:00)
[2021-06-08] MEDS: SERTRALINE 50 MG TABLET. PO SCH (10:02)
[2021-06-08] MEDS: APIXABAN 2.5 MG TABLET. PO SCH ×2 (10:02→19:55)
--- NOTE | 2021-06-08 10:20 | NUR ---
SW following. Discussed with RN, ESTER faxed clinicals to [facility], awaiting placement or return to [facility]. ESTER will continue to follow. Addendum: 06/08/21 at 1500 by ENZO NORMAN SW spoke with [facility], they are now saying pt's daughter never said she was fine with pt returning to [facility]. [facility] can take pt tomorrow, maybe today if pt is vaccinated. Pt had one dose of Pfizer in September, then had COVID in October, so likely was unable to get second dose. ESTER spoke with [facility] -they had sent the referrals this morning, ESTER questioned why the referral had only been sent this morning, when [facility] had known since the weekend that the daughter did not want pt to return to [facility]. Other facilities referral sent to are [facility] and [facility]. ESTER left voicemail for [facility], [facility] are reviewing the referral. ESTER will continue to follow.
[2021-06-08 11:01] VITALS: BP 107/59
[2021-06-08] MEDS ORDERED: APIX2.5T PO (14:13)
--- NOTE | 2021-06-08 14:14 | SNU/HH DC ---
DISCHARGE ORDERS DISCHARGE INFORMATION: DISCHARGE DATE: Jun 08, 2021 FINAL DIAGNOSIS Problems Medical Problems: (1) Displaced fracture of right femoral neck Status: Acute CONDITION ON DISCHARGE: Stable CODE STATUS: Code Status: DNR/DNI HOSPICE: HOSPICE: Yes HOSPICE EVAL & TREAT: Yes POST DISCHARGE ORDERS: ACTIVITY ORDERS: Activity as tolerated WEIGHT BEARING STATUS: Full weight bearing, As tolerated DIET AFTER DISCHARGE: Cardiac WOUND/INCISION CARE: No wound care needed TREATMENT/EQUIPMENT ORDERS: ADAPTIVE EQUIPMENT NEEDED: None DISCHARGE MEDICATIONS: Home Meds Active Scripts Apixaban (ELIQUIS) 2.5 Mg Tablet, 2.5 MG PO BID for DVT PPX for 30 Days, #60 TAB Prov:NILSON JACINTO MD 06/08/21 Ergocalciferol (Vitamin D2) (VITAMIN D2) 50,000 Unit Capsule, 1 CAP PO WEEKLY, #4 CAP 5 Refills Prov:NICOLE JAIMES MD 09/27/17 Reported Medications Simethicone (SIMETHICONE) 80 Mg Tab.chew, 1 MG PO PRN BID PRN for INDIGESTION, TAB.CHEW 11/20/20 Multivitamin (MULTI VITAMIN DAILY) 1 Each Tablet, 1 TAB PO DAILY for vitamin for 30 Days, #30 TAB 0 Refills 11/20/20 Trazodone Hcl (TRAZODONE HCL) 50 Mg Tablet, 50 MG PO PRN QHS PRN for INSOMNIA, TAB 10/03/20 Olanzapine (ZYPREXA) 2.5 Mg Tablet, 2.5 MG PO PRN Q2HRS PRN for ANXIETY / AGITATION, TAB 10/03/20 Magnesium Hydroxide (MILK OF MAGNESIA) 2,400 Mg/10 Ml Oral.susp, 2400 MG PO PRN QHS PRN for CONSTIPATION, MISC 10/03/20 Mag Hydrox/Al Hydrox/Simeth (MAALOX MAXIMUM STRENGTH SUSP) 355 Ml Oral.susp, 15 ML PO PRN AFTMEALHC PRN for HEARTBURN / GAS, MISC 10/03/20 Sertraline Hcl (ZOLOFT) 50 Mg Tablet, 50 MG PO DAILY for ANTI-DEPRESSANT, TAB 0 Refills 10/03/20 Risperidone (RISPERDAL) 0.5 Mg Tablet, 0.75 MG PO QHS for MOOD STABILIZER, TAB 10/03/20 NILSON JACINTO MD Jun 08, 2021 14:14
[2021-06-08 15:00] VITALS: BP 141/90
--- NOTE | 2021-06-08 15:23 | PATHOLOGY ---
[facility] Accession Number: [id number] . 01 Material submitted: . hip - R HIP BONES. Modifiers: right . 01 Clinical history: . R HIP BIPOLAR HEMIARTHROPLASTY . 02 Diagnosis: Femoral head and separate segment of bone, right hip hemarthroplasty: - Focal fragmentation of bony trabeculae and recent intertrabecular hemorrhage consistent with fracture. (JPM:carlo; 06/08/2021) QMS 06/08/2021 1340 Local . 02 Comment: There is no evidence of malignancy. (JPM:carlo; 06/08/2021) . 02 Electronically signed: . Oscar Sanchez MD, Pathologist NPI- [id number] . 01 Gross description: . The specimen is received in formalin, labeled "Emili Sigala, R hip bones". It consists of 2 roberts, bony, firm tissue fragments (3.5 and 4.5 cm) and a roberts fatty soft tissue segment (4.0 x 1.5 x 0.8 cm). The largest bony fragment appears grossly consistent with a femoral head and displays a roberts smooth articular surface without eburnation-like changes. The opposite surface is roughened and hemorrhagic. The smaller bone fragment displays a roughened end and a smooth resection surface. A artists' booking representative section of the largest bone fragment is submitted in A1 following decalcification. (MRF; 06/07/2021) MFE/MFE 06/08/2021 1339 Local . 02 Pathologist provided ICD-10: S72.001A . 02 CPT . 346542, 383933 Specimen Comment: A courtesy copy of this report has been sent to [phone], [phone] Specimen Comment: [id number] Specimen Comment: Report sent to / DR EDMONDSON Performed at: 01 [facility] [address], [place], [place] [id number] MD Ancelmo Saldivar MD Phone: [phone] Performed at: 02 [facility] [address] [place], [place] [id number] MD Oscar Sanchez MD Phone: [phone]
[2021-06-08 19:00] VITALS: BP 144/67
[2021-06-08] MEDS ORDERED: risperiDONE 0.25 MG TABLET. PO SCH (21:00)
[2021-06-08] MEDS ORDERED: PSYLLIUM HUSK (SUGAR FREE) 1 PKT PACKET PO SCH (21:00)
[2021-06-08 22:43] VITALS: BP 133/79
[2021-06-09 03:00] VITALS: BP 146/71
[2021-06-09 07:00] VITALS: BP 145/81
[2021-06-09] MEDS: APIXABAN 2.5 MG TABLET. PO SCH (09:00)
[2021-06-09] MEDS: SERTRALINE 50 MG TABLET. PO SCH (09:00)
--- NOTE | 2021-06-09 10:58 | PDOC ---
[employer] PROGRESS NOTE Date of Service DOS: DATE: 06/09/21 TIME: 10:56 Chief Complaint Chief Complaint Fall with right hip fracture - s/p hemiarthroplasty 06/06/21 Dementia Anxiety Arthritis H/o colon cancer diastolic CHF Moderate Aortic Stenosis Chronic kidney disease. History of colon cancer. Pulmonary HTN - likely related to Hypertension Hyperlipidemia FEN - cardiac diet PPX - Eliquis post op 30 days and stop CODE - DNR/DNI Dispo - Family wishes return to hospice care but would like to look into an alternative facility. History of Present Illness History of Present Illness Ms Sigala is a 85 year old female with history of dementia, anxiety, h/o colon ca in remission, aortic stenosis, diastolic chf, CKD, pulmonary HTN, HTN, HLD who is [facility] who presents with a reported right femoral neck fracture. Reportedly had pain after a transfer a few days ago. Today, she had worsening pain with repositioning and the nurse noted that it seemed to be coming from the right hip. They had an x-ray that showed a fracture. She was referred to the ED for further care. Of note she is active in hospice care. 06/06: Patient seen and examined. She is just returning from the OR had a ORIF hemiarthroplasty. Pleasantly confused. Has mitts on for her safety. Right hip with clean dry intact dressing and ice pack. Discussed with RN 06/07: Patient seen lying in bed. Pleasantly demented. S/P right hip hemiarthroplasty. She has orders in for PT/OT. Will need acute rehab upon discharge; possibly discharge back to [facility]. 06/08: Afebrile overnight no cough. No concerns from nursing staff. Patient is pleasantly confused talking to the television as much as she communicates to me, oriented to person only. Labs pending. Family wishes return to hospice care but would like to look into an alternative facility. 06/09: Afebrile, no acute vents overnight. Patient resting comfortably in bed. She has been accepted to SNU and will discharge on hospice. Greater than 30 minutes spent managing discharge this patient. Vitals/I&O Vitals/I&O: Vital Signs Date Time Temp Pulse Resp B/P (MAP) Pulse Ox O2 Delivery O2 Flow Rate FiO2 06/09/21 07:00 97.9 92 16 145/81 (102) 96 Room Air 97.9 I & O 06/08/21 06/08/21 06/09/21 15:00 23:00 07:00 Intake Total 0 ml Output Total 900 ml Balance 0 ml -900 ml Physical Exam General: Other (Pleasantly confused) Heart: Regular rate Lungs: Clear Abdomen: Normal bowel sounds Extremities: Other (Right hip with clean dry intact dressing and an ice pack) Skin: No rashes Assessment and Plan Assessmemt and Plan Problems Medical Problems: (1) Displaced fracture of right femoral neck Status: Acute Comment Review of Relevant I have reviewed the following items dalton (where applicable) has been applied. Medications: Current Medications Medications (Trade) Dose Ordered Sig/Leonila Route PRN Reason Start Time Stop Time Status Last Admin Dose Admin Psyllium Hydrophilic Mucilloid (Metamucil Fiber Packet) 1 pkt QHS PO 06/08/21 21:00 06/08/21 19:55 Risperidone (RisperDAL) 0.75 mg QHS PO 06/08/21 21:00 06/08/21 19:55 Justifications for Admission Other Justification elevated troponin EVITA FAITH MD Jun 09, 2021 10:58
[2021-06-09 11:00] VITALS: BP 150/68
--- NOTE | 2021-06-09 11:01 | PDOC3 ---
Discharge Summary Visit Information Date of Admission: Jun 05, 2021 Date of Discharge: Jun 09, 2021 Final Diagnosis Problems Medical Problems: (1) Displaced fracture of right femoral neck Status: Acute Brief Hospital Course Allergies Allergies Coded Allergies Type Severity Reaction Last Updated Verified No Known Drug Allergies 06/06/21 No Vital Signs Vital Signs Date Time Temp Pulse Resp B/P (MAP) Pulse Ox O2 Delivery O2 Flow Rate FiO2 06/09/21 07:00 97.9 92 16 145/81 (102) 96 Room Air 97.9 Lab Results Laboratory Tests Test 06/08/21 07:45 White Blood Count 13.7 x10^3/uL (4.0-11.0) Red Blood Count 3.46 x10^6/uL (3.50-5.40) Hemoglobin 10.4 g/dL (12.0-15.5) Hematocrit 30.8 % (36.0-47.0) Mean Corpuscular Volume 89 fL (79-100) Mean Corpuscular Hemoglobin 30 pg (25-35) Mean Corpuscular Hemoglobin Concent 34 g/dL (31-37) Red Cell Distribution Width 14.5 % (11.5-14.5) Platelet Count 318 x10^3/uL (140-400) Sodium Level 143 mmol/L (136-145) Potassium Level 3.7 mmol/L (3.5-5.1) Chloride Level 106 mmol/L (98-107) Carbon Dioxide Level 30 mmol/L (21-32) Anion Gap 7 (6-14) Blood Urea Nitrogen 49 mg/dL (7-20) Creatinine 1.2 mg/dL (0.6-1.0) Estimated GFR (Cockcroft-Gault) 51.7 Glucose Level 149 mg/dL (70-99) Calcium Level 9.3 mg/dL (8.5-10.1) Brief Hospital Course Ms. Sigala is a 85 old female who presented with displaced subcapital fracture of right hip. Consultation was placed to orthopedic surgery. She had right hip hemiarthroplasty. Family is not wanting patient to [facility] to [facility]. She was accepted to different SNU on hospice care. Discharge Information Condition at Discharge: Stable Disposition/Orders: D/C to Another Facility Scheduled Apixaban (Eliquis) 2.5 Mg Tablet, 2.5 MG PO BID for DVT PPX for 30 Days, #60 Prescribed by: NILSON JACINTO MD on 06/08/21 1413 Ergocalciferol (Vitamin D2) (Vitamin D2) 50,000 Unit Capsule, 1 CAP PO WEEKLY, #4 Ref 5 Prescribed by: NICOLE JAIMES on 09/27/17 0758 Last Action: Continued on 06/08/2112 by NILSON JACINTO MD Multivitamin (Multi Vitamin Daily) 1 Each Tablet, 1 TAB PO DAILY for vitamin for 30 Days, #30 Ref 0 (Reported) Entered as Reported by: ELINA COX on 11/20/202035 Risperidone (Risperdal) 0.5 Mg Tablet, 0.75 MG PO QHS for MOOD STABILIZER, (Reported) Entered as Reported by: Rocael Pereyra on 10/03/201814 Last Action: Converted on 06/08/21711 by NILSON JACINTO MD Sertraline Hcl (Zoloft) 50 Mg Tablet, 50 MG PO DAILY for ANTI-DEPRESSANT, Ref 0 (Reported) Entered as Reported by: Rocael Pereyra on 10/03/201814 Last Action: Continued on 06/08/21711 by NILSON JACINTO MD Scheduled PRN Mag Hydrox/Al Hydrox/Simeth (Maalox Maximum Strength Susp) 355 Ml Oral.susp, 15 ML PO PRN AFTMEALHC PRN for HEARTBURN / GAS, (Reported) Entered as Reported by: Rocael Pereyra on 10/03/201814 Magnesium Hydroxide (Milk Of Magnesia) 2,400 Mg/10 Ml Oral.susp, 2,400 MG PO PRN QHS PRN for CONSTIPATION, (Reported) Entered as Reported by: Rocael Pereyra on 10/03/201814 Olanzapine (Zyprexa) 2.5 Mg Tablet, 2.5 MG PO PRN Q2HRS PRN for ANXIETY / AGITATION, (Reported) Entered as Reported by: Rocael Pereyra on 10/03/201814 Simethicone (Simethicone) 80 Mg Tab.chew, 1 MG PO PRN BID PRN for INDIGESTION, (Reported) Entered as Reported by: ELINA COX on 11/20/202035 Last Action: Continued on 06/08/21711 by NILSON JACITNO MD Trazodone Hcl (Trazodone Hcl) 50 Mg Tablet, 50 MG PO PRN QHS PRN for INSOMNIA, (Reported) Entered as Reported by: Rocael Pereyra on 10/03/201814 Last Action: Continued on 06/08/21711 by NILSON JACINTO MD Justicifation of Admission Dx: Justifications for Admission: Justification of Admission Dx: Yes EVITA FAITH MD Jun 09, 2021 11:01
--- NOTE | 2021-06-09 11:05 | SNU/HH DC ---
DISCHARGE ORDERS DISCHARGE INFORMATION: DISCHARGE DATE: Jun 09, 2021 FINAL DIAGNOSIS Problems Medical Problems: (1) Displaced fracture of right femoral neck Status: Acute CONDITION ON DISCHARGE: Stable CODE STATUS: Code Status: DNR/DNI MCC: SNF STAY <30 DAYS: Yes HOSPICE: HOSPICE: Yes HOSPICE EVAL & TREAT: Yes POST DISCHARGE ORDERS: ACTIVITY ORDERS: Activity as tolerated WEIGHT BEARING STATUS: Full weight bearing, As tolerated DIET AFTER DISCHARGE: Cardiac WOUND/INCISION CARE: No wound care needed TREATMENT/EQUIPMENT ORDERS: ADAPTIVE EQUIPMENT NEEDED: None DISCHARGE MEDICATIONS: Home Meds Active Scripts Apixaban (ELIQUIS) 2.5 Mg Tablet, 2.5 MG PO BID for DVT PPX for 30 Days, #60 TAB Prov:NILSON JACINTO MD 06/08/21 Ergocalciferol (Vitamin D2) (VITAMIN D2) 50,000 Unit Capsule, 1 CAP PO WEEKLY, #4 CAP 5 Refills Prov:NICOLE JAIMES MD 09/27/17 Reported Medications Simethicone (SIMETHICONE) 80 Mg Tab.chew, 1 MG PO PRN BID PRN for INDIGESTION, TAB.CHEW 11/20/20 Multivitamin (MULTI VITAMIN DAILY) 1 Each Tablet, 1 TAB PO DAILY for vitamin for 30 Days, #30 TAB 0 Refills 11/20/20 Trazodone Hcl (TRAZODONE HCL) 50 Mg Tablet, 50 MG PO PRN QHS PRN for INSOMNIA, TAB 10/03/20 Olanzapine (ZYPREXA) 2.5 Mg Tablet, 2.5 MG PO PRN Q2HRS PRN for ANXIETY / AGITATION, TAB 10/03/20 Magnesium Hydroxide (MILK OF MAGNESIA) 2,400 Mg/10 Ml Oral.susp, 2400 MG PO PRN QHS PRN for CONSTIPATION, MISC 10/03/20 Mag Hydrox/Al Hydrox/Simeth (MAALOX MAXIMUM STRENGTH SUSP) 355 Ml Oral.susp, 15 ML PO PRN AFTMEALHC PRN for HEARTBURN / GAS, MISC 10/03/20 Sertraline Hcl (ZOLOFT) 50 Mg Tablet, 50 MG PO DAILY for ANTI-DEPRESSANT, TAB 0 Refills 10/03/20 Risperidone (RISPERDAL) 0.5 Mg Tablet, 0.75 MG PO QHS for MOOD STABILIZER, TAB 10/03/20 EVITA FAITH MD Jun 09, 2021 11:05
--- NOTE | 2021-06-09 11:34 | NUR ---
SW following. Discussed with RN, family decided to return to [facility]. Digna ([facility]) came to collect packet and discharge orders due to fax being down. Awaiting transportation time. Vladimir aware. ESTER will continue to follow.
--- NOTE | 2021-06-09 16:05 | NUR ---
Patient discharged back to [facility], accompanied by ambulance personnel. Patient is alert, IV removed, and nursing communication was call to the facility. The nurse taking report was Shy SOSA.
== END 2021-06-09 16:08 | disposition hospice, inpatient (51) | DRG 522 ==
LOC: ER 13:18 → ED HOLD 16:36 → 4 NORTH 17:48
PROVIDERS: ADMIT Internal Medicine; ATTEND Internal Medicine
PROC: 0SRR0JZ Replacement of Right Hip Joint, Femoral Surface with Synthetic Substitute, Open Approach (ICD-10-PCS; principal; 2021-06-06 11:00)
DX: S72.011A Unspecified intracapsular fracture of right femur, initial encounter for closed fracture (principal); I13.0 Hypertensive heart and chronic kidney disease with heart failure and stage 1 through stage 4 chronic kidney disease, or unspecified chronic kidney disease; I50.32 Chronic diastolic (congestive) heart failure; E78.00 Pure hypercholesterolemia, unspecified; E78.5 Hyperlipidemia, unspecified; F03.90 Unspecified dementia, unspecified severity, without behavioral disturbance, psychotic disturbance, mood disturbance, and anxiety; F41.9 Anxiety disorder, unspecified; I25.2 Old myocardial infarction; I27.20 Pulmonary hypertension, unspecified; I35.0 Nonrheumatic aortic (valve) stenosis; M19.90 Unspecified osteoarthritis, unspecified site; N18.9 Chronic kidney disease, unspecified; Z51.5 Encounter for palliative care; Z66 Do not resuscitate; Z79.899 Other long term (current) drug therapy; Z82.49 Family history of ischemic heart disease and other diseases of the circulatory system; Z85.038 Personal history of other malignant neoplasm of large intestine; W18.39XA Other fall on same level, initial encounter; Y93.89 Activity, other specified; Y92.89 Other specified places as the place of occurrence of the external cause; Y99.8 Other external cause status; Z20.822 Contact with and (suspected) exposure to COVID-19
CPT/HCPCS: 36415; 51702; 71045; 73502; 80048; 85007; 85025; 85027; 87426; 88305; 88311; 93005; A4314; J0690; J1100; J2270; J2370; J2405; J2704; J2710; J3010; J3490; J7120; U0003; U0005; 97530-GP; 99285-25; G0378